=== PATIENT | female | born 2000 ===

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

== ENCOUNTER 2022-01-02 14:32 | Emergency (ER) | payer MEDICAID, SELFPAY ==
[2022-01-02 14:50] VITALS: BP 132/70; PULSE 62; RESP 16; TEMP 36.8; O2SAT 99; BMI 18.6
--- NOTE | 2022-01-02 14:56 | ED.FEMALEGU ---
HPI - Female Genitourinary General Chief complaint: Urogenital-Female Stated complaint: infection/personal Time Seen by Provider: 01/02/22 14:52 Source: patient Mode of arrival: ambulatory Limitations: no limitations History of Present Illness HPI Narrative: 21 y/o female presents to the ER for evaluation of urinary odor and vaginal discharge in the setting of recent unprotected sex 4 days ago. She states yesterday morning she woke up with green vaginal discharge and odor. She denies any pelvic pain, abdominal pain, nausea, vomiting or fevers. She denies any vaginal lesions or itching. She has never had a sexually transmitted infection before. She spoke with her partner who currently has no symptoms. Her last menstrual cycle was at the end of November. MD elicited complaint: possible STD Onset (ago): day(s) (1) Location of symptoms: vaginal Severity: moderate Female Urogenital Radiation: Non-Radiating Vaginal discharge: purulent Vaginal bleeding: none Urinary symptoms: Foul Smelling Urine Exacerbating factors: none Relieving factors: none Associated symptoms: denies other symptoms Treatment prior to arrival: none Sexual activity: Yes Patient : No Related Data : 1 Para: 0 Previous Rx's Medication Instructions Recorded cefuroxime axetil 250 mg tablet 250 mg PO BID #6 tabs 01/02/22 doxycycline hyclate 100 mg tablet 100 mg PO BID #14 tabs 01/02/22 Allergies Allergy/AdvReac Type Severity Reaction Status Date / Time No Known Allergies Allergy Unverified 04/04/20 18:22 [No Known Allergies*] Review of Systems Review of Systems: Constitutional: No Fever, No Chills ENT/Mouth: No sore throat Cardiovascular: No Chest Pain, No SOB Gastrointestinal: No Nausea, No Vomiting, No Diarrhea, No abdominal Pain, No Hematochezia, No Melena Genitourinary: No Dysuria, No Urinary Frequency, No Hematuria, +vaginal discharge, No pelvic pain, No gential lesions Musculoskeletal: No joint pain, No Myalgias Skin: No Skin Lesions, No rash Neuro: No Dizziness, No Headache Psych: + Anxiety/Panic Heme/Lymph: No Lymphadenopathy PMFSH Past Medical History : 1 Para: 0 Social History Social History Advance Directives: No Advance Directives Information Provided: No Patient : No Physical Exam Vital Signs: Vital Signs: Last Vital Signs Temp 98.2 F 01/02/22 14:50 Pulse 62 01/02/22 14:50 Resp 16 01/02/22 14:50 BP 132/70 01/02/22 14:50 Pulse Ox 99 01/02/22 14:50 O2 Del Method 01/02/22 14:50 BMI result Body Mass Index 18.6 Appearance: Alert. Oriented X3. No acute distress. HEENT: normal inspection CVS: Normal heart rate and rhythm. Pulses normal. Respiratory: No respiratory distress. Skin: Skin warm and dry. Normal skin color. Normal skin turgor. No rashes. Abdomen: Flat, soft, nontender throughout, normal bowel sounds. Pelvic: Normal-appearing external genitalia, no lesions or tenderness. Internal examination reveals moderate amount of white/greenish vaginal discharge, cervix is erythematous, closed. Bimanual examination reveals no adnexal tenderness. Extremities: Normal inspection x4 Neuro: Oriented X 3. Grossly normal, nonfocal Course Course Course Narrative: 21-year-old female presents to the ER for evaluation of green vaginal discharge started yesterday in the setting of unprotected sex. Clinical presentation and examination are consistent with STI, ? Trichomonas. Will also treat empirically for gonorrhea and chlamydia. Intramuscular Rocephin given here and will prescribe 1 week course of doxycycline. Patient was counseled on restrictions with both of these antibiotics. We will call her with the results. She will follow-up with [facility] as needed. Stable for discharge home. Reevaluation(s) Reevaluation #1: Trichomonas and yeast negative. Flagyl cancelled. UA + for infection. Will treat with 3 days of Ceftin and complete 1 week of doxy. Stable for d/c. MDM - Female Genitourinary Lab Data Labs: Lab Results 01/02/22 01/02/22 Range/Units 15:19 15:19 Urine Color YELLOW Urine Appearance HAZY Urine pH 6.5 (5.0-8.0) Ur Specific [place] 1.025 (1.005-1.025) Urine Protein TRACE (NEG-TRACE) MG/DL Urine Glucose (UA) NEG (NEG) MG/DL Urine Ketones 5 (NEG) MG/DL Urine Blood NEG (NEG) Urine Nitrite NEG (NEG) Ur Leukocyte Esterase 3+ H (NEG) Urine Test NEGATIVE (NEGATIVE) Critical Care Time Critical Care Time Critical Care Time: No Discharge Plan Discharge Clinical Impression: Cervicitis, UTI (urinary tract infection) Patient Disposition: Home, Self-Care Instructions: Cervicitis (ED), Urinary Tract Infection in Women (ED) Additional Instructions: Your urine test was negative for . It showed possible, urinary tract infection. You are being treated for possible sexually transmitted infections. Your test for Trichomoas and yeast came back negative today. Take the antibiotics as prescribed, complete the entire course. No sexual activity until you are off of antibiotics and all other symptoms are resolved. We will call you if any of the swabs today are positive. Recommend following up with the [facility] for further sexually transmitted infection testing such as HIV and syphilis, as needed. If you develop new or worsening symptoms call 911 or come back to the ER for further evaluation. Prescriptions: New doxycycline hyclate 100 mg tablet 100 mg PO BID Qty: 14 0RF cefuroxime axetil 250 mg tablet 250 mg PO BID Qty: 6 0RF
[2022-01-02] MEDS: cefTRIAXone sodium 500 MG, Lidocaine HCl 1 % MPF 1 ML IM (15:27)
[2022-01-02 15:33] LABS: Appearance Urine HAZY; Color Urine YELLOW; Glucose Urine UA NEG (NEG); Leukocyte Esterase Urine 3+ (NEG); Nitrite Urine NEG (NEG); PH 6.5 (5.0-8.0); Specific Gravity - Urine 1.025 (1.005-1.025); UACC Culture Trigger YES; UPreg QC Valid YES; Urine Blood NEG (NEG); Urine Ketones 5 MG/DL (NEG); Urine Pregnancy NEGATIVE (NEGATIVE); Urine Protein TRACE MG/DL (NEG-TRACE)
[2022-01-02 15:54] LABS: WBC Urine TNTC /HPF (0-4)
[2022-01-02 15:55] LABS: Bacteria Urine 2+ /LPF; RBC Urine 0-2 /HPF (0); Squamous Epithelial Cell Urine 3+ /LPF
[2022-01-03 10:22] LABS: CT PCR NOT DETECTED (Not Detect.); NG PCR NOT DETECTED (Not Detect.)
[2022-01-03 10:28] LABS: BV Int Neg Control Negative (Negative); BV Int Pos Control Positive (Positive)
== END 2022-01-02 16:00 | disposition home or self-care (01) ==
PROVIDERS: Physician Assistant; Emergency Provider Student in an Organized Health Care Education/Training Program
DX: N39.0 Urinary tract infection, site not specified (principal); N72 Inflammatory disease of cervix uteri; B96.89 Other specified bacterial agents as the cause of diseases classified elsewhere
CPT/HCPCS: 81001; 81025; 87086; 87480; 87491; 87510; 87591; 87660; 96372; 99283; 99284; J0696

== ENCOUNTER 2022-03-16 09:58 | Emergency (ER) | payer MEDICAID, SELFPAY ==
[2022-03-16 10:13] VITALS: BP 129/78; PULSE 90; RESP 20; TEMP 36.6; O2SAT 100; BMI 21.4
[2022-03-16 10:31] LABS: Appearance Urine Clear; Color Urine Yellow; Glucose Urine UA Negative (Negative); Leukocyte Esterase Urine Trace (Negative); Nitrite Urine Negative (Negative); PH 6.5 (5.0-8.0); Urine Blood Negative (Negative); Urine Ketones Negative (Negative); Urine Protein Negative (Neg-Trace)
[2022-03-16 10:32] LABS: UPreg QC Valid YES; Urine Pregnancy NEGATIVE (NEGATIVE)
[2022-03-16 10:37] LABS: Bacteria Urine None Seen (None Seen); Hyaline Casts Urine 0-2 /LPF (0-2); RBC Urine 0-2 /HPF (0-2); Squamous Epithelial Cell Urine 0-2 /HPF (0-2); WBC Urine 0-5 /HPF (0-5)
--- NOTE | 2022-03-16 12:38 | ED.GENADULT ---
HPI - General Adult General Chief complaint: General Medical Stated complaint: PT will not disclose why she is here Time Seen by Provider: 03/16/22 10:30 Source: patient Mode of arrival: ambulatory Limitations: no limitations History of Present Illness HPI narrative: Patient is a 22 year old female presenting to the emergency department today with concern of STI. Patient states that she feels as though her vaginal secretions have changed and she is concerned about an STI. Patient denies any dizziness, lightheadedness, abdominal pain, nausea, vomiting, fever, chills, blurry vision, double vision, loss of vision, chest pain, difficulty breathing, shortness of breath, back pain, night sweats, pain with urination, increased urinary frequency, increased urinary urgency, blood in her urine or stool, syncope or a near syncopal episode, recent trauma or falls, vaginal bleeding, vaginal discharge, bowel incontinence, bladder incontinence, bowel retention, bladder retention, or any other complaints at this time. Onset (ago): day(s) (1) Severity: mild Severity scale (1-10): 2 Relieving factors: none Exacerbating factors: none Associated symptoms: denies other symptoms Treatments prior to arrival: none Related Data Previous Rx's Medication Instructions Recorded doxycycline hyclate 100 mg tablet 100 mg PO BID 7 days #14 tabs 03/16/22 Allergies Allergy/AdvReac Type Severity Reaction Status Date / Time No Known Allergies Allergy Unverified 03/16/22 10:12 [No Known Allergies*] Review of Systems Constitutional: Constitutional: Reports no additional constitutional complaints, Denies chills, Denies fever(s) and Denies night sweats Eyes: Eyes: Reports no additional eye complaints, Denies blurry vision, Denies change in vision, Denies diplopia, Denies eye discharge, Denies loss of vision and Denies eye pain ENT: Denies dizziness Cardiovascular: Cardiovascular: Reports no additional cardiovascular complaints, Denies chest pain, Denies lightheadedness, Denies Loss of Consciousness and Denies dyspnea Respiratory: Respiratory: Reports no additional respiratory complaints and Denies dyspnea Gastrointestinal: Gastrointestinal: Reports no additional gastrointestinal complaints, Denies abdominal pain, Denies melena, Denies hematochezia, Denies change in bowel habits and Denies change in stool character Genitourinary: Genitourinary: Denies hematuria, Denies urinary frequency, Denies dysuria, Denies urinary incontinence, Denies urinary hesitancy, Denies urinary urgency and Reports vaginal discharge Musculoskeletal: Musculoskeletal: Reports no additional musculoskeletal complaints, Denies numbness and Denies tingling Neurologic: Denies dizziness, Denies loss of vision, Denies numbness and Denies tingling Psychiatric: Psychiatric: Reports no additional psychiatric complaints Endocrine: Endocrine: Reports no additional endocrine complaints Hematologic/Lymphatic: Hematologic/Lymphatic: Reports no additional hematologic/lymphatic complaints Allergic/Immunologic: Allergic/Immunologic: Reports no additional allergic/immunologic complaints FOR[facility], [facility] Past Medical History Attestation statement: The following information was validated with the patient. Source: old records reviewed Social History Social History Advance Directives: No Advance Directives Information Provided: Yes Physical Exam ED Vital Signs: Vital Signs - 24 hr 03/16/22 10:13 Temperature 97.9 F Pulse Rate 90 Respiratory Rate 20 Blood Pressure 129/78 Pulse Oximetry 100 Oxygen Delivery Method Room Air BMI result Body Mass Index 21.4 Const General: cooperative, no acute distress, alert and awake Nutritional Appearance: well nourished Orientation/consciousness: patient oriented x3 Limitations: no limitations HENMT Head: Yes normal to inspection and Yes atraumatic Ears: hearing grossly normal bilaterally and external ears normal General nose exam: Normal external nose present, no nasal discharge noted and no epistaxis Face and sinus: Yes normal facial exam, No abrasion and No laceration Mouth: Normal oral and palatal mucosa present, no drooling and no muffled voice Eyes General: appearance normal, both eyes and all related structures Periorbital: periorbital findings normal Eyelids: Yes eyelids normal Conjunctivae: conjunctivae normal Pupils: Equal, round and reactive pupils present EOM: EOMs intact bilaterally Neck Neck: Yes normal visual inspection, Yes full ROM and Yes no lymphadenopathy Chest Chest palpation & inspection: normal inspection of the chest Resp Effort & Inspection: normal respiratory effort and able to speak in complete sentences Auscultation: clear to auscultation bilaterally Cardio Rate: regular rate Rhythm: regular rhythm GI Inspection: Yes normal to inspection Neuro General: patient oriented x3 and moves all extremities Cranial nerves: Yes Equal, round and reactive pupils present Cognition (Neuro): normal cognition Motor exam (neuro): 5/5 motor strength present throughout Sensory Exam: Normal double simultaneous stimulation for sensation Coordination: [id number] test normal Extrem General: Yes normal to inspection, Yes full ROM and Yes capillary refill normal Psych Appearance: grossly normal Mental Status: mental status grossly normal Affect: normal affect Attitude: cooperative Thought process: Normal thought process present Thought content: Normal thought content present Insight: Good insight present (Psych) Medical Decision Making MDM Narrative Medical decision making narrative: Patient is a 22 year old female presenting to the emergency department today with STI concerns. Patient's physical exam was unremarkable. Patient's urine showed no acute process however, her GC is pending. I explained my physical exam findings as well as all test results to the patient. I answered all questions asked by the patient. Patient was given IM Ceftriaxone. I stressed the importance of the patient taking her medication as prescribed. I stressed the importance of the patient following up with her primary care provider. I stressed the importance of the patient returning to the emergency department immediately if her symptoms were to worsen or if she were to develop any dizziness, shortness of breath, difficulty breathing, chest pain, blurry vision, loss of vision, nausea, vomiting, abdominal pain, fever, chills, back pain, or any other complaints. Patient verbalized agreement and understanding with this treatment plan and discharge. Differential Diagnosis Differential Diagnosis: STI Medical Records Medical records reviewed: Yes I reviewed the patient's medical records. Lab Data Lab results reviewed: Yes I reviewed the patient's lab results. Labs: Lab Results 03/16/22 03/16/22 03/16/22 Range/Units 10:23 10:23 10:57 Urine Color Yellow Urine Appearance Clear Urine pH 6.5 (5.0-8.0) Ur Specific Orange 1.010 (1.005-1.025) Urine Protein Negative (Neg-Trace) mg/dL Urine Glucose (UA) Negative (Negative) mg/dL Urine Ketones Negative (Negative) mg/dL Urine Blood Negative (Negative) Urine Nitrite Negative (Negative) Ur Leukocyte Esterase Trace H (Negative) Urine RBC 0-2 (0-2) /HPF Urine WBC 0-5 (0-5) /HPF Ur Squamous Epith Cells 0-2 (0-2) /HPF Urine Bacteria None Seen (None Seen) Hyaline Casts 0-2 (0-2) /LPF Urine Test NEGATIVE (NEGATIVE) Chlam trachomat DNA PCR DETECTED A (Not Detect.) N.gonorrhoeae DNA (PCR) NOT DETECTED (Not Detect.) Discharge Plan Discharge Clinical Impression: STI (sexually transmitted infection) Patient Disposition: Home, Self-Care Instructions: Safe Sex Practices (ED) Additional Instructions: Follow up with your primary care provider. Return to the emergency department immediately if your symptoms worsen or if you develop any dizziness, shortness of breath, difficulty breathing, chest pain, blurry vision, loss of vision, nausea, vomiting, abdominal pain, fever, chills, back pain, or any other complaints. Prescriptions: New doxycycline hyclate 100 mg tablet 100 mg PO BID 7 Days Qty: 14 0RF Referrals: [facility] [Provider Group] (Call to establish and follow up with a primary care provider. If you already have a primary care provider, please call and follow up with them. ) [facility] [Provider Group] (Call to establish and follow up with a primary care provider. If you already have a primary care provider, please call and follow up with them. ) [facility] [Provider Group] (Call to establish and follow up with a primary care provider. If you already have a primary care provider, please call and follow up with them. ) Print Language: Afghan
[2022-03-16] MEDS: cefTRIAXone sodium 500 MG VIAL IM (12:55)
[2022-03-16 13:29] LABS: CT PCR DETECTED (Not Detect.)
[2022-03-16 13:30] LABS: NG PCR NOT DETECTED (Not Detect.)
== END 2022-03-16 16:19 | disposition home or self-care (01) ==
PROVIDERS: Emergency Provider Emergency Medicine
DX: Z20.2 Contact with and (suspected) exposure to infections with a predominantly sexual mode of transmission (principal)
CPT/HCPCS: 81001; 81025; 87491; 87591; 96372; 99282; 99284; J0696

== ENCOUNTER 2022-04-20 14:03 | Emergency (ER) | payer MEDICAID, SELFPAY ==
[2022-04-20 14:07] VITALS: BP 131/78; PULSE 71; RESP 18; TEMP 37.1; O2SAT 100; BMI 18.9
[2022-04-20 16:49] LABS: Basophils Percent Auto 0.1 % (0-2); Hematocrit 41.2 % (37.0-47.0); Hemoglobin 12.9 g/dl (12.0-16.0); Imm Gran Abs Auto 0.04 X10*3/uL (0.00-0.03); Imm Gran Pct Auto 0.4 % (0.0-0.4); Lymphocytes Absolute Auto 0.7 X10*3/uL (1.2-4.9); Lymphocytes Percent Auto 6.4 % (20-40); MANUAL DIFF FLAG SCAN; Mean Corpuscular HGB Conc 31.3 g/dl (31.0-35.0); Mean Corpuscular Hemoglobin 25.6 pg (27.0-33.0); Mean Corpuscular Volume 81.9 fL (80.0-98.0); Mean Platelet Volume 10.5 fL (9.4-12.3); Monocytes Absolute Auto 0.3 X10*3/uL (0.1-1.2); Monocytes Percent Auto 2.7 % (2-11); Neutrophils Absolute Auto 9.8 x10*3/uL (2.0-8.3); Neutrophils Percent Auto 90.4 % (45-73); Platelet Count 291 X10*3/uL (160-400); Red Blood Count 5.03 X10*6/uL (4.20-5.50); Red Cell Distribution Width 16.8 % (11.0-16.0); SCAN SMEAR FLAG 1; White Blood Count 10.8 X10*3/uL (4.8-10.8)
[2022-04-20 17:09] LABS: SLIDE REVIEW VERIFIED
[2022-04-20 17:16] LABS: Alanine Aminotransferase 13 U/L (0-31); Albumin Level 4.8 g/dL (3.5-5.0); Alkaline Phosphatase 73 U/L (39-117); Anion Gap 15 (12-20); Aspartate Amino Transferase 25 U/L (5-31); Bilirubin Direct 0.2 mg/dL (0.0-0.5); Bilirubin Total 0.3 mg/dL (0.0-1.0); Blood Urea Nitrogen 6 mg/dL (9-16); Calcium 9.5 mg/dL (8.4-10.2); Carbon Dioxide 22 mmol/L (22-29); Chloride 104 mmol/L (96-108); Creatinine Clr Calc Pharmacy 108.2; Estimated Glomerular Filt Rate > 60; Glucose Random 125 mg/dL (60-115); Lipase 13 U/L (8-78); Potassium 4.2 mmol/L (3.3-5.1); Sodium 137 mmol/L (135-145); Total Protein 8.1 g/dL (6.5-8.0)
== END 2022-04-20 22:36 | disposition left against medical advice (07) ==
PROVIDERS: Emergency Provider Emergency Medicine
DX: O21.9 Vomiting of pregnancy, unspecified (principal); Z3A.01 Less than 8 weeks gestation of pregnancy
CPT/HCPCS: 36415; 80048; 80076; 83690; 85025; 99281; 99283

== ENCOUNTER 2022-04-22 13:51 | Emergency (ER) | payer MEDICAID, SELFPAY ==
--- NOTE | ~2022-04-22 | US_ITS ---
EXAMINATION: US OBSTETRICAL ULTRASOUND CLINICAL INFORMATION: Abdominal pain. Vomiting. COMPARISON: None. Beta-hCG quantitative: 94301 LMP: Unknown. TECHNIQUE: Ultrasound of the maternal pelvis is performed using transabdominal transducer. M-mode Doppler is also performed. FINDINGS: There is a single intrauterine gestational sac with visible yolk sac, pole, and cardiac activity. There is no significant subchorionic hemorrhage or hematoma. The yolk sac has an inner diameter of 2 mm, normal HR: 110 beats per minute. CRL (crown rump length): 0.38 cm (6 weeks 1 day +/- 4 days). FAM (estimated date of delivery): 12/15/2022 +/- 4 days. MATERNAL ADNEXA: The right maternal ovary measures 2.5 x 1.8 x 2.1 cm. A 1.4 cm rounded cystic focus at the right ovary likely corresponds to a corpus luteum. The left maternal ovary measures 2.1 x 1 x 1.6 cm. There is no significant maternal adnexal mass. No maternal pelvic ascites. US/US OB <= 14 weeks fetus IMPRESSION: 1. Single intrauterine gestation with ultrasound gestational age of 6 weeks 1 day +/- 4 days. 2. Estimated date of delivery is 12/15/2022 +/- 4 days. 3. No maternal adnexal mass or pelvic ascites.
--- NOTE | ~2022-04-22 | US_ITS ---
EXAMINATION: US ABDOMEN LIMITED CLINICAL INFORMATION: Upper abdominal and epigastric pain. Question gallstone. COMPARISON: None TECHNIQUE: Limited right upper quadrant ultrasound for evaluation of the gallbladder was performed utilizing a curved array transducer. FINDINGS: Gallbladder is physiologically distended. No echogenic shadowing gallstones, sludge, or polyps. No pericholecystic fluid. Gallbladder wall is at the upper limits of normal measuring 3 mm in thickness. The patient was tender in the area of the gallbladder during scanning per technologist report. No biliary ductal dilation. The visualized common hepatic duct measures 0.3 cm in diameter. US/US abdomen limited IMPRESSION: 1. No evidence of cholelithiasis. No biliary ductal dilation. 2. Borderline gallbladder wall thickening. No specific sonographic findings of acute cholecystitis.
[2022-04-22 15:17] VITALS: BP 108/73; PULSE 103; RESP 16; TEMP 37.3; O2SAT 97; BMI 18.9
[2022-04-22 17:09] LABS: Hematocrit 39.3 % (37.0-47.0); Hemoglobin 12.7 g/dl (12.0-16.0); Mean Corpuscular HGB Conc 32.3 g/dl (31.0-35.0); Mean Corpuscular Hemoglobin 25.8 pg (27.0-33.0); Mean Corpuscular Volume 79.7 fL (80.0-98.0); Platelet Count 305 X10*3/uL (160-400); Red Blood Count 4.93 X10*6/uL (4.20-5.50); Red Cell Distribution Width 16.6 % (11.0-16.0); White Blood Count 10.9 X10*3/uL (4.8-10.8)
[2022-04-22 17:23] LABS: Anion Gap 16 (12-20); Blood Urea Nitrogen 10 mg/dL (9-16); Calcium 9.3 mg/dL (8.4-10.2); Carbon Dioxide 22 mmol/L (22-29); Chloride 104 mmol/L (96-108); Creatinine Clr Calc Pharmacy 113.6; Estimated Glomerular Filt Rate > 60; Glucose Random 78 mg/dL (60-115); Potassium 3.7 mmol/L (3.3-5.1); Sodium 138 mmol/L (135-145)
[2022-04-22 17:28] LABS: COVID-19 Test Negative (Negative); IDNOW Serial# 16C4AD1C
[2022-04-22 19:59] VITALS: BP 134/74; PULSE 89; RESP 12; TEMP 36.9; O2SAT 99
[2022-04-22 22:15] LABS: Alanine Aminotransferase 11 U/L (0-31); Albumin Level 4.5 g/dL (3.5-5.0); Alkaline Phosphatase 70 U/L (39-117); Aspartate Amino Transferase 25 U/L (5-31); Bilirubin Direct 0.2 mg/dL (0.0-0.5); Bilirubin Total 0.4 mg/dL (0.0-1.0); Lipase 18 U/L (8-78); Total Protein 7.7 g/dL (6.5-8.0)
[2022-04-22] MEDS: Acetaminophen 325 MG TABLET 975 MG PO (22:15)
--- NOTE | 2022-04-23 00:02 | PC.NURSE ---
Questioning whether patient eloped. found ultrasound pictures in room but patient is not in room x 30mins after ultrasound pictures.
--- NOTE | 2022-04-23 00:06 | ED_ITS ---
HPI - Abdominal Pain General Chief Complaint: Abdominal Pain Stated Complaint: abd pain quest of Time Seen by Provider: 04/22/22 21:06 Source: patient Mode of arrival: ambulatory Limitations: no limitations History of Present Illness HPI narrative: Patient presents emergency department for evaluation of upper abdominal pain located to the epigastric and right upper quadrant region in vomiting. She stat es that this is been going on for 3 days. She took it at home test which was positive. She is uncertain of the date of her last menstrual. States she thinks it was about a month and a half ago. She reports that she came to the emergency department 2 days ago but ultimately left from the waiting room without being seen. She has not yet seen an OB regarding her . Denies fevers, chills, headache, dizziness, lightheadedness, chest pain, palpitations, shortness of breath, difficulty breathing, back pain, flank pain, abnormal vaginal discharge, dysuria, urinary frequency/urgency/hesitancy. Related Data Previous Rx's Medication Instructions Recorded doxycycline hyclate 100 mg tablet 100 mg PO BID 7 days #14 tabs 03/16/22 Allergies Allergy/AdvReac Type Severity Reaction Status Date / Time No Known Allergies Allergy Unverified 03/16/22 10:12 [No Known Allergies*] Review of Systems Review of Systems Constitutional : No Weight loss, No Fever, No Chills ENT/Mouth :? No sore throat, No Rhinorrhea Eyes: No Swelling, No Redness Cardiovascular : No Chest Pain, No SOB, No Edema Respiratory : No Cough, No Sputum, No Wheezing Gastrointestinal : Positive Nausea, Positive Vomiting, no Diarrhea, positive abdominal pain, No Hematochezia, No Melena Genitourinary : No Dysuria, No Urinary Frequency, No Hematuria, No Urgency? Musculoskeletal : No joint pain, No Myalgias, No Joint Swelling Skin : No Skin Lesions, No rash Neuro : No Weakness, No Numbness, No Dizziness, No Headache Psych : No Anxiety/Panic, No Depression Heme/Lymph: No Bruising, No Lymphadenopathy Endocrine : No Polyuria, No Polydipsia Yes all other systems are reviewed and are negative [facility] Past Medical History Attestation statement: The following information was validated with the patient. Source: old records reviewed Social History Social History Advance Directives: No Advance Directives Information Provided: No Physical Exam ED Vital Signs: Vital Signs - 24 hr 04/22/22 15:17 04/22/22 19:59 Temperature 99.1 F 98.4 F Pulse Rate 103 H 89 Respiratory Rate 16 12 Blood Pressure 108/73 134/74 Pulse Oximetry 97 99 Oxygen Delivery Method Room Air Room Air BMI result Body Mass Index 18.9 Appearance: Alert.?Oriented to person, place and time. No acute distress.?Normal affect. Eyes: Pupils equal, round and reactive to light.? ENT: Pharynx normal.?? Neck: Normal inspection.? Neck supple.?? CVS: Heart sounds normal. Normal heart rate and rhythm.? Pulses normal.?? Respiratory: No respiratory distress.? Lung sounds clear to auscultation bilaterally?? Abdomen: Soft with epigastric and right upper quadrant tenderness upon palpation, normoactive bowel sounds.?? Skin: Skin warm and dry.? Normal skin color.? ?? Extremities: No lower extremity edema.? Neuro: Moves all extremities spontaneously. Sensation intact bilaterally. No focal neuro deficits. Ambulates with normal steady gait. Course Course Course Narrative: Patient is a 22-year-old female with no significant past medical history, presenting to emergency department for evaluation of abdominal pain with vomiting and recent positive test. Gestation unknown, last menstrual period is uncertain reporting she believes it may have been 1.5 months ago. She appears significantly uncomfortable, unable to sit still during examination. Physical exam consists surrounding for significant tenderness over the epigastrium and right upper quadrant. Will obtain CBC, CMP, lipase, hCG, urinalysis, ultrasound to evaluate for cholelithiasis, CBD. Patient also reporting mid lower abdominal pain, obtain pelvic ultrasound to exclude ectopic . Will trial IV fluids, and Zofran IV. Reevaluation(s) Reevaluation #1: CBC reveals mild leukocytosis at 10.9. CMP is normal, lipase is normal. HCG 73,29 which may be consistent with early , early as 6-7 weeks or possibly further along. Abdominal ultrasound reveals no evidence of cholelithiasis no biliary duct dilation, however there is borderline gallbladder wall thickening without evidence of cholecystitis. Pelvic ultrasound reveals a single intrauterine gestation of approximately 6 weeks 1 day with estimated due date 12/15/2022. Presented to patient's room to discuss findings however she was not present 2355: Advised by nursing staff that patient had eloped. Patient did not have an IV in place at the time of elopement. Nursing staff Presented to room and patient was gone, no personal belongings left behind. Checked bathrooms and waiting room patient was not present. Time: 23:55 MDM - Abdominal Pain Medical Records Attestation: I reviewed the patient's medical records. Lab Data Attestation: I reviewed the patient's lab results. Result diagrams: 04/22/22 16:57 04/22/22 16:57 Labs: Lab Results 04/22/22 04/22/22 04/22/22 Range/Units 16:57 16:57 16:57 WBC 10.9 H (4.8-10.8) X10*3/uL RBC 4.93 (4.20-5.50) X10*6/uL Hgb 12.7 (12.0-16.0) g/dl Hct 39.3 (37.0-47.0) % MCV 79.7 L (80.0-98.0) fL MCH 25.8 L (27.0-33.0) pg MCHC 32.3 (31.0-35.0) g/dl RDW 16.6 H (11.0-16.0) % Plt Count 305 (160-400) X10*3/uL MPV 10.0 (9.4-12.3) fL Absolute Nucleated RBC 0.000 (0.0-0.012) X10*3/uL Nucleated RBC % (auto) 0.0 (0.0-0.2) /100WBC Sodium 138 (135-145) mmol/L Potassium 3.7 (3.3-5.1) mmol/L Chloride 104 (96-108) mmol/L Carbon Dioxide 22 (22-29) mmol/L Anion Gap 16 (12-20) BUN 10 D (9-16) mg/dL Creatinine 0.60 (0.5-1.4) mg/dL Estim Creat Clear Calc 113.6 Estimated GFR > 60 Random Glucose 78 (60-115) mg/dL Calcium 9.3 (8.4-10.2) mg/dL Total Bilirubin 0.4 (0.0-1.0) mg/dL Direct Bilirubin 0.2 (0.0-0.5) mg/dL AST 25 (5-31) U/L ALT 11 (0-31) U/L Alkaline Phosphatase 70 (39-117) U/L Total Protein 7.7 (6.5-8.0) g/dL Albumin 4.5 (3.5-5.0) g/dL Lipase 18 (8-78) U/L Beta HCG, Quant 19096 mIU/mL COVID-19 (CARLOS) Negative (Negative) COVID-19 Clin Com See Note Imaging Data US - abdomen: Radiologist's impression: US/US abdomen limited IMPRESSION: ? 1. No evidence of cholelithiasis. No biliary ductal dilation. 2. Borderline gallbladder wall thickening. No specific sonographic findings of acute cholecystitis. pelvic US: Radiologist's impression: US/US OB <= 14 weeks fetus IMPRESSION: 1. Single intrauterine gestation with ultrasound gestational age of? 6 weeks 1 day +/- 4 days. 2. Estimated date of delivery is 12/15/2022 +/- 4 days. 3. No maternal adnexal mass or pelvic ascites. Discharge Plan Discharge Clinical Impression: Vomiting, Patient Disposition: Elopement Prescriptions: No Action doxycycline hyclate 100 mg tablet 100 mg PO BID 7 Days Qty: 14 0RF Interventions: ED Discharge Assessment Last Done: 04/23/22 00:19 Discharge Date/Time: 04/23/22 00:20
== END 2022-04-23 00:20 | disposition left against medical advice (07) ==
PROVIDERS: Nurse Practitioner Family; Physician Assistant; Emergency Provider Emergency Medicine
DX: O21.0 Mild hyperemesis gravidarum (principal); Z3A.01 Less than 8 weeks gestation of pregnancy; Z20.822 Contact with and (suspected) exposure to COVID-19; Z79.899 Other long term (current) drug therapy
CPT/HCPCS: 76705; 76801; 80048; 80076; 83690; 84702; 85027; 87635; 99283; 99284

== ENCOUNTER → 2022-05-07 13:45 | Outpatient (BNVA) | payer MEDICAID, SELFPAY | PROVIDERS: Visit Provider Advanced Practice Midwife | DX: Z34.80 Encounter for supervision of other normal pregnancy, unspecified trimester (principal); Z3A.00 Weeks of gestation of pregnancy not specified | CPT/HCPCS: 99202 ==

== ENCOUNTER 2023-03-06 15:28 | Emergency (ER) | payer MEDICAID, SELFPAY ==
--- NOTE | ~2023-03-06 | US_ITS ---
EXAMINATION: US PELVIS CLINICAL INFORMATION: A 23-year-old female with vaginal bleeding for 3 months status post delivery. COMPARISON: Obstetrical ultrasound done on 04/22/2022. TECHNIQUE: Ultrasound of the pelvis is performed using both transabdominal and transvaginal transducers along with Doppler. Transvaginal imaging is performed due to inadequate visualization transabdominally. FINDINGS: Uterus: The uterus is anteverted and measures 8.7 x 5.6 x 7.1 cm. The double wall endometrial thickness is 2 mm. No evidence of any retained product of conception. Trace amount of fluid is present within the endometrial cavity. The uterus is smooth in contour and has slightly heterogeneous myometrium echogenicity. No visible fibroid. Adnexa: Both ovaries are visualized. There is no pelvic ascites or fluid collection. Right ovary measures 2.3 x 1.6 x 1.6 cm. 3.1 mL. Previously measured 3.6 x 2.2 x 2.2 cm. Left ovary measures 2.1 x 1.8 x 1.3 cm. 2.6 mL. Previously measured 1.8 x 1.7 x 1.6 cm. US/US pelvic and transvaginal IMPRESSION: No sonographic evidence of retained product of conception. Sonographically unremarkable bilateral ovaries. The etiology for vaginal bleeding is not evident on these images.
[2023-03-06 15:29] VITALS: BP 139/93; PULSE 68; RESP 15; TEMP 37.2; O2SAT 100; BMI 17.8
--- NOTE | 2023-03-06 15:30 | ED.ABDPAIN ---
HPI - Abdominal Pain General Chief Complaint: Urogenital-Female Stated Complaint: abd pain Time Seen by Provider: 03/06/23 15:58 Source: patient Mode of arrival: ambulatory Limitations: no limitations History of Present Illness HPI narrative: Patient is a 23-year-old , recently delivered on 12/16/2022 presenting with continuous vaginal bleeding. States she had her normal menstrual period approximately one month , then had one month without bleeding, then has had continuous spotting since. 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 Denies any abdominal pain, dysuria hematuria. Denies any nausea, vomiting, diarrhea or constipation. Denies any abnormal vaginal discharge. Does report that she tested positive for chlamydia early in her and was treated with antibiotics. Is agreeable to STI testing today. Denies fevers. Denies any chest pain or shortness of breath. MD elicited complaint: other (Vaginal bleeding) Pertinent past history: other (Recently gave on 12/16/2022) Onset (ago): month(s) Location: none Associated symptoms: denies other symptoms Related Data Previous Rx's Medication Instructions Recorded doxylamine succinate 25 mg tablet 25 mg PO BEDTIME PRN sleep #30 tabs 05/07/22 (Unisom (doxylamine)) vitamin with calcium 1 tab PO DAILY #90 tabs 05/07/22 no.72-iron 27 mg-folic acid 1 mg tablet ( Vitamins Plus Low Iron) pyridoxine (vitamin B6) 25 mg 25 mg PO TID #90 tabs 05/07/22 tablet Allergies Allergy/AdvReac Type Severity Reaction Status Date / Time No Known Allergies Allergy Verified 05/07/22 13:50 [No Known Allergies*] Review of Systems Review of Systems As per HPI. Yes all other systems are reviewed and are negative Constitutional: Reports as per HPI [facility] Social History Social History (Updated 05/07/22 @ 13:51 by TRACY Gregory) Substance Use Type: Marijuana Advance Directives: No Advance Directives Information Provided: No Physical Exam ED Vital Signs: Vital Signs - 24 hr 03/06/23 15:29 Temperature 99 F Pulse Rate 68 Respiratory Rate 15 Blood Pressure 139/93 H Pulse Oximetry 100 Oxygen Delivery Method Room Air BMI result Body Mass Index 17.8 Vital signs have been reviewed and appear to be correct. Blood pressure elevated. Heart rate normal. Respiratory rate normal. Temperature normal. Oxygen saturation normal. Const General: cooperative, healthy appearing and no acute distress Orientation/consciousness: oriented to person, oriented to place, oriented to time and patient oriented x3 Limitations: no limitations HENMT Head: Yes normocephalic and Yes atraumatic Ears: external ears normal General nose exam: Normal external nose present Face and sinus: Yes face symmetric Mouth: oropharynx normal and moist mucous membranes Throat: Yes uvula midline Eyes Pupils: Equal, round and reactive pupils present Neck Neck: Yes normal visual inspection and Yes supple Resp Effort & Inspection: normal respiratory effort and able to speak in complete sentences Auscultation: clear to auscultation bilaterally Cardio Rate: regular rate Rhythm: regular rhythm Heart sounds: S1 normal heart sound present and S2 normal heart sound present GI Palpation (GI): Soft to palpation and nontender Auscultation: normoactive bowel sounds Other: Pelvic exam chaperoned by ALIZA Mulligan General: Yes no CVA tenderness External Female Exam: normal external appearance Speculum Exam - Vagina: normal appearance of the vagina, normal palpation, abnormal vaginal discharge clear and bloody, not erythematous, no lesions, vaginal bleeding, No tissue present in vagina, no masses and nontender Speculum Exam - Cervix: normal appearance of the cervix and Cervical os closed Bimanual exam- vagina & uterus: normal palpation OB/external & speculum: vaginal bleeding; no tissue noted in vagina Back/Spine/Pelvis Back: no CVA tenderness Skin General skin exam: elasticity normal and turgor normal Neuro General: oriented to person, oriented to place, oriented to time, patient oriented x3, moves all extremities, no focal motor deficits and CN's II-XI intact bilaterally Cranial nerves: Yes Equal, round and reactive pupils present Cognition (Neuro): normal cognition Extrem General: Yes full ROM, Yes no pedal edema and Yes no calf tenderness Psych Mental Status: mental status grossly normal Affect: normal affect Thought process: Normal thought process present Course Course Course Narrative: This is a rapid medical exam. Deferred additional HPI, ROS, PE to primary provider. 23 yo female with history of anemia here with vaginal bleeding x 3 months (described as spotting). Had vaginal delivery 3 months ago. 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 Del[place] at [facility] [place]. No fevers, chills, urinary symptoms, abdominal pain. Will obtain labs, UA, ur preg, pelvic US. VSS Medical Decision Making Medical Decision Making [facility] Narrative: Patient is a 23-year-old , recently delivered on 12/16/2022 presenting with continuous vaginal bleeding. On exam patient is awake, A+Ox3, VS WNL, afebrile, normal neurological exam without focal deficits, abdomen soft and nontender, no guarding or rebound tenderness, no CVA tenderness. Given reported symptoms and physical exam findings, initial differential includes spontaneous , ectopic , uterine fibroids, abnormal uterine bleeding, STI. Labs notable for normal H&H, no leukocytosis. No evidence of infection on UA. U/S notable for no evidence of retained products of conception, normal ovaries. My interpretation is in agreement with the radiologist's interpretation. Will perform pelvic exam and swab for gonorrhea, chlamydia, trichomonas and BV. Feel patient is stable for discharge home at this time with follow-up with her RAIL SIGNAL DESIGNER. Will refer to Dr. Aguilar if she is unable to see her RAIL SIGNAL DESIGNER. Will contact patient with any positive results from pelvic exam. Return precautions discussed at bedside. Patient verbalized understanding of and agreement with plan. Differential Diagnosis Differential Diagnoses: The differential diagnosis associated with the presentation includes As per MDM. Admission/Observation Consideration of admission/observation: Escalation of care including admission/observation considered Lab Data [facility] Lab Attestation statement: I reviewed the patient's lab results. As per MDM. 03/06/23 15:41 03/06/23 15:41 Labs: Lab Results 03/06/23 03/06/23 03/06/23 Range/Units 15:41 15:41 15:41 WBC 6.2 (4.8-10.8) X10*3/uL RBC 4.64 (4.20-5.50) X10*6/uL Hgb 12.3 (12.0-16.0) g/dl Hct 38.9 (37.0-47.0) % MCV 83.8 (80.0-98.0) fL MCH 26.5 L (27.0-33.0) pg MCHC 31.6 (31.0-35.0) g/dl RDW 18.3 H (11.0-16.0) % Plt Count 250 (160-400) X10*3/uL MPV 10.3 (9.4-12.3) fL Immature Gran % (Auto) 0.0 (0.0-0.4) % Neut % (Auto) 37.7 L (45-73) % Lymph % (Auto) 47.1 H (20-40) % Waller % (Auto) 8.1 (2-11) % Eos % (Auto) 6.8 H (0-4) % Baso % (Auto) 0.3 (0-2) % Lymph # (Auto) 2.9 (1.2-4.9) X10*3/uL Waller # (Auto) 0.5 (0.1-1.2) X10*3/uL Eos # (Auto) 0.4 (0.0-0.4) X10*3/uL Baso # (Auto) 0.0 (0.0-0.2) X10*3/uL Abs Immat Gran (auto) 0.00 (0.00-0.03) X10*3/uL Absolute Neuts (auto) 2.3 (2.0-8.3) x10*3/uL Absolute Nucleated RBC 0.000 (0.0-0.012) X10*3/uL Nucleated RBC % (auto) 0.0 (0.0-0.2) /100WBC PT 14.7 H (11.1-13.3) SEC INR 1.2 H (0.9-1.1) Sodium 141 (135-145) mmol/L Potassium 4.1 (3.3-5.1) mmol/L Chloride 112 H (96-108) mmol/L Carbon Dioxide 23 (22-29) mmol/L Anion Gap 10 L (12-20) BUN 8 L (9-16) mg/dL Creatinine 0.68 (0.5-1.4) mg/dL Estim Creat Clear Calc 93.2 Estimated GFR > 60 Random Glucose 97 (60-115) mg/dL Calcium 9.7 (8.4-10.2) mg/dL Total Bilirubin 0.2 (0.0-1.0) mg/dL Direct Bilirubin < 0.2 (0.0-0.5) mg/dL AST 22 (5-31) U/L ALT 11 (0-31) U/L Alkaline Phosphatase 74 (39-117) U/L Total Protein 7.2 (6.5-8.0) g/dL Albumin 4.2 (3.5-5.0) g/dL Urine Color Urine Appearance Urine pH (5.0-9.0) Ur Specific [place] (1.005-1.025) Urine Protein (Neg-Trace) mg/dL Urine Glucose (UA) (Negative) mg/dL Urine Ketones (Negative) mg/dL Urine Blood (Negative) Urine Nitrite (Negative) Ur Leukocyte Esterase (Negative) Urine RBC (0-2) /HPF Urine WBC (0-5) /HPF Ur Squamous Epith Cells (0-2) /HPF Urine Bacteria (None Seen) Hyaline Casts (0-2) /LPF Urine Test (NEGATIVE) 03/06/23 03/06/23 Range/Units 15:45 15:45 WBC (4.8-10.8) X10*3/uL RBC (4.20-5.50) X10*6/uL Hgb (12.0-16.0) g/dl Hct (37.0-47.0) % MCV (80.0-98.0) fL MCH (27.0-33.0) pg MCHC (31.0-35.0) g/dl RDW (11.0-16.0) % Plt Count (160-400) X10*3/uL MPV (9.4-12.3) fL Immature Gran % (Auto) (0.0-0.4) % Neut % (Auto) (45-73) % Lymph % (Auto) (20-40) % Waller % (Auto) (2-11) % Eos % (Auto) (0-4) % Baso % (Auto) (0-2) % Lymph # (Auto) (1.2-4.9) X10*3/uL Waller # (Auto) (0.1-1.2) X10*3/uL Eos # (Auto) (0.0-0.4) X10*3/uL Baso # (Auto) (0.0-0.2) X10*3/uL Abs Immat Gran (auto) (0.00-0.03) X10*3/uL Absolute Neuts (auto) (2.0-8.3) x10*3/uL Absolute Nucleated RBC (0.0-0.012) X10*3/uL Nucleated RBC % (auto) (0.0-0.2) /100WBC PT (11.1-13.3) SEC INR (0.9-1.1) Sodium (135-145) mmol/L Potassium (3.3-5.1) mmol/L Chloride (96-108) mmol/L Carbon Dioxide (22-29) mmol/L Anion Gap (12-20) BUN (9-16) mg/dL Creatinine (0.5-1.4) mg/dL Estim Creat Clear Calc Estimated GFR Random Glucose (60-115) mg/dL Calcium (8.4-10.2) mg/dL Total Bilirubin (0.0-1.0) mg/dL Direct Bilirubin (0.0-0.5) mg/dL AST (5-31) U/L ALT (0-31) U/L Alkaline Phosphatase (39-117) U/L Total Protein (6.5-8.0) g/dL Albumin (3.5-5.0) g/dL Urine Color Yellow Urine Appearance Clear Urine pH 5.5 (5.0-9.0) Ur Specific [place] 1.025 (1.005-1.025) Urine Protein Negative (Neg-Trace) mg/dL Urine Glucose (UA) Negative (Negative) mg/dL Urine Ketones Trace (Negative) mg/dL Urine Blood Small (1+) H (Negative) Urine Nitrite Negative (Negative) Ur Leukocyte Esterase Small (1+) H (Negative) Urine RBC 0-2 (0-2) /HPF Urine WBC 6-10 H (0-5) /HPF Ur Squamous Epith Cells 6-10 (0-2) /HPF Urine Bacteria None Seen (None Seen) Hyaline Casts 0-2 (0-2) /LPF Urine Test NEGATIVE (NEGATIVE) Independent Interpretation I performed an independent interpretation of an: Ultrasound Interpretation: No retained products of conception, normal ovaries Radiology Impression Discussion of test interpretation with radiology: I have reviewed the radiologist's reading. Radiologist Impression: US/US pelvic and transvaginal IMPRESSION: No sonographic evidence of retained product of conception. Sonographically unremarkable bilateral ovaries. The etiology for vaginal bleeding is not evident on these images. External Record Review External record reviewed: Inpatient record, Office record and Outpatient record Discharge Plan Discharge Clinical Impression: Vaginal bleeding Patient Disposition: Home, Self-Care Instructions: Dysfunctional Uterine Bleeding (ED), Bleeding (ED) Additional Instructions: You were evaluated in the emergency department today for vaginal bleeding. Your blood levels are normal today, you are not anemic. Your ultrasound did not show evidence of a miscarriage or ectopic . You were tested for sexually transmitted infections and will be contacted with any positive results. Please contact your OBGYN for follow-up appointment. If you are unable to see your OBGYN, you are also being referred to Dr. Aguilar, and can contact his office for an appointment. Please return to the emergency department for worsening vaginal bleeding, abdominal pain, fever 100.4? F or greater, back or flank pain, or any other concerning symptoms. Prescriptions: No Action Vitamin Plus Low Iron 27 mg iron- 1 mg tablet 1 tab PO DAILY Qty: 90 4RF Unisom (doxylamine) 25 mg tablet 25 mg PO BEDTIME PRN (Reason: sleep) Qty: 30 0RF pyridoxine (vitamin B6) 25 mg tablet 25 mg PO TID Qty: 90 1RF Referrals: Nitish Aguilar MD [Physician] -
[2023-03-06 15:47] LABS: MANUAL DIFF FLAG NO
[2023-03-06 15:48] LABS: Basophils Percent Auto 0.3 % (0-2); Eosinophils Absolute Auto 0.4 X10*3/uL (0.0-0.4); Eosinophils Percent Auto 6.8 % (0-4); Hematocrit 38.9 % (37.0-47.0); Hemoglobin 12.3 g/dl (12.0-16.0); Lymphocytes Absolute Auto 2.9 X10*3/uL (1.2-4.9); Lymphocytes Percent Auto 47.1 % (20-40); Mean Corpuscular HGB Conc 31.6 g/dl (31.0-35.0); Mean Corpuscular Hemoglobin 26.5 pg (27.0-33.0); Mean Corpuscular Volume 83.8 fL (80.0-98.0); Mean Platelet Volume 10.3 fL (9.4-12.3); Monocytes Absolute Auto 0.5 X10*3/uL (0.1-1.2); Monocytes Percent Auto 8.1 % (2-11); Neutrophils Absolute Auto 2.3 x10*3/uL (2.0-8.3); Neutrophils Percent Auto 37.7 % (45-73); Platelet Count 250 X10*3/uL (160-400); Red Blood Count 4.64 X10*6/uL (4.20-5.50); Red Cell Distribution Width 18.3 % (11.0-16.0); White Blood Count 6.2 X10*3/uL (4.8-10.8)
[2023-03-06 16:01] LABS: Alanine Aminotransferase 11 U/L (0-31); Albumin Level 4.2 g/dL (3.5-5.0); Alkaline Phosphatase 74 U/L (39-117); Anion Gap 10 (12-20); Aspartate Amino Transferase 22 U/L (5-31); Bilirubin Direct < 0.2 mg/dL (0.0-0.5); Bilirubin Total 0.2 mg/dL (0.0-1.0); Blood Urea Nitrogen 8 mg/dL (9-16); Calcium 9.7 mg/dL (8.4-10.2); Carbon Dioxide 23 mmol/L (22-29); Chloride 112 mmol/L (96-108); Creatinine Clr Calc Pharmacy 93.2; Estimated Glomerular Filt Rate > 60; Glucose Random 97 mg/dL (60-115); Potassium 4.1 mmol/L (3.3-5.1); Sodium 141 mmol/L (135-145); Total Protein 7.2 g/dL (6.5-8.0)
[2023-03-06 16:05] LABS: UPreg QC Valid YES; Urine Pregnancy NEGATIVE (NEGATIVE)
[2023-03-06 16:06] LABS: Appearance Urine Clear; Color Urine Yellow; Glucose Urine UA Negative (Negative); Leukocyte Esterase Urine Small (1+) (Negative); Nitrite Urine Negative (Negative); PH 5.5 (5.0-9.0); Specific Gravity - Urine 1.025 (1.005-1.025); UMIC TRIGGER UACC YES; Urine Blood Small (1+) (Negative); Urine Ketones Trace mg/dL (Negative); Urine Protein Negative (Neg-Trace)
[2023-03-06 16:07] LABS: INTERNATIONAL NORM RATIO 1.2 (0.9-1.1); Prothrombin Time 14.7 SEC (11.1-13.3)
--- OUTSIDE RECORDS SUMMARY | 2023-03-06 16:18 | XMS_ITS | Continuity of Care Document ---
Author Name Unknown Organization [facility] Address [address] [place] [address]- Care Team Providers Care Millwright Name Role Phone Not on Staff, PCP Primary Care Physician Unavail able [place] [facility] [place] [facility] [place] - 12/04/22 [facility] [address] [address]- Attending Physician: Catie Goldstein MD Admitting Physician: Catie Goldstein MD Referring Physician: Kimber Woods CNM Allergies, Adverse Reactions, Alerts No Known Allergies Immunizations Given and Recorded Vaccine Date Status Refusal Reason SARS-CoV-2 mRNA (syiaodu-nfgh-xmxen) vax 1 09/16/20 Recorded SARS-CoV-2 mRNA (jyftlvk-wbsc-kvrpk) vax 2 07/19/20 Recorded 1Result Comment: In [place] 2Result Comment: Received vaccines [place] Medications ferrous sulfate 325 mg oral tablet See Instructions, 1 tablet By Mouth every other day, # 90 tablet, 1 Refills, Maintenance, 09/01/22 14:02:00 EST, Tablet, [facility]/pharmacy #[id number], Partial fill upon patient request if the prescription is for a schedule II opioid drug., 159, cm, 07/29/22 11:... Start Date: 09/01/22 Status: Ordered PNV By Mouth, Daily, 0 Refills, Maintenance, 07/29/22 11:30:00 EST, Partial fill upon patient request if the prescription is for a schedule II opioid drug. Start Date: 07/29/22 Status: Ordered Multivitamins with Folic Acid 1 mg oral tablet 1 tablet, By Mouth, Daily, # 90 tablet, 2 Refills, Maintenance, 07/29/22 11:48:00 EST, [facility]/pharmacy#[id number], Partial fill upon patient request if the prescription is for a schedule II opioid drug., 1 tablet By Mouth Daily, 159, cm, 07/29/22 11:24:00 EST... Start Date: 07/29/22 Status: Ordered Problem List Condition Confirmation Course Effective Dates Status Health St atus Informant Marginal insertion of umbilical cord affecting management of mother Confirmed Active Anemia during Confirmed Active Abnormal ultrasound Confirmed Active Social History Social History Type Response Smoking Status Never (less than 100 in lifetime) entered on: 07/29/22 Sex Patient Care team information Care Team Personnel Name: Not on Staff, PCP Position: S Physician (General Medicine) Member Role: PCP
--- OUTSIDE RECORDS SUMMARY | 2023-03-06 16:18 | XMS_ITS | Continuity of Care Document ---
Author Name Unknown Organization [facility] Address [address] [place] [address]- Care Team Providers Care Immunopathologist Name Role Phone Not on Staff, PCP Primary Care Physician Unavail able Encounter [facility] Date(s): 11/12/22 - 12/18/[address] [address]- Attending Physician: Catie Goldstein MD Admitting Physician: Catie Goldstein MD Referring Physician: Kimber Woods CNM Allergies, Adverse Reactions, Alerts No Known Allergies Immunizations Given and Recorded Vaccine Date Status Refusal Reason SARS-CoV-2 mRNA (ensbuaf-cvzn-detck) vax 1 09/16/20 Recorded SARS-CoV-2 mRNA (hnnsrxq-ypjv-zjqrx) vax 2 07/19/20 Recorded 1Result Comment: In [place] 2Result Comment: Received vaccines in [place] Medications ferrous sulfate 325 mg oral tablet See Instructions, 1 tablet By Mouth every other day, # 90 tablet, 1 Refills, Maintenance, 09/01/22 14:02:00 EST, Tablet, [facility]/pharmacy #[id number], Partial fill upon patient request if the [...] tablet, 2 Refills, Maintenance, 07/29/22 11:48:00 EST, [facility]/pharmacy#[id number], Partial fill upon patient request if the prescription is for a schedule II opioid drug., 1 tablet By Mouth Daily, 159, cm, 07/29/22 11:24:00 EST... Start Date: 07/29/22 Status: Ordered Social History Social History Type Response Smoking Status Never (less than 100 in lifetime) entered on: 07/29/22 Sex Patient Care team information Care Team Personnel Name: Not on Staff, PCP Position: S Physician (General Medicine) Member Role: PCP Care Team Related Persons Name: KRISHAN ESTRADA Address: [id number] Address: [address] [place] [address] [place] Name: [facility]
--- OUTSIDE RECORDS SUMMARY | 2023-03-06 16:18 | XMS_ITS | Continuity of Care Document ---
Author Name Unknown Organization [facility] Address [address] [place] [address]- Care Team Providers Care Press Tender Short Goods Name Role Phone Not on Staff, PCP Primary Care Physician Unavail able Encounter [facility] [place] Date(s): 08/20/22 - 09/19/[address] [address]- Allergies, Adverse Reactions, Alerts No Known Allergies Immunizations Given and Recorded Vaccine Date Status Refusal Reason SARS-CoV-2 mRNA (gqbmshp-idsa-rdima) vax 1 09/16/20 Recorded SARS-CoV-2 mRNA (vywvqpb-adcs-izdvt) vax 2 07/19/20 Recorded 1Result Comment: In [place] 2Result Comment: Received vaccines in [place] Medications azithromycin 500 mg oral tablet 2 tablet = 1,000 mg, By Mouth, Once, # 2 tablet, 0 Refills, Soft Stop, 09/17/22 14:57:00 EST, Tablet, [facility]/pharmacy #[id number], Partial fill upon patient request if the prescription is for a schedule II opioid drug., 159, cm, 09/16/22 14:02:00 EST, Height Start Date: 09/17/22 Status: Ordered ferrous sulfate 325 mg oral tablet See Instructions, 1 tablet By Mouth every other day, # 90 tablet, 1 Refills, Maintenance, 09/01/22 14:02:00 EST, Tablet, [id number], Partial fill upon patient request if the [...] tablet, 2 Refills, Maintenance, 07/29/22 11:48:00 EST, [id number], Partial fill upon patient request if the [...]
--- OUTSIDE RECORDS SUMMARY | 2023-03-06 16:18 | XMS_ITS | Continuity of Care Document ---
Author Name Unknown Organization [facility] Address [address] [place] [address]- Care Team Providers Care Mine Environmental Engineer Name Role Phone Not on Staff, PCP Primary Care Physician Unavail able Encounter [facility] Date(s): 09/11/22 - 10/11/[address] [address]- Allergies, Adverse Reactions, Alerts No Known Allergies Immunizations Given and Recorded Vaccine Date Status Refusal Reason SARS-CoV-2 mRNA (mremjod-oqor-kamll) vax 1 09/16/20 Recorded SARS-CoV-2 mRNA (aqjluhk-nvgj-iibjo) vax 2 07/19/20 Recorded 1Result Comment: In [place] 2Result Comment: Received vaccines in [place] Medications azithromycin 500 mg oral tablet 2 [...] Personnel Name: Not on Staff, PCP Position: [facility] Physician (General Medicine) Member Role: PCP
--- OUTSIDE RECORDS SUMMARY | 2023-03-06 16:18 | XMS_ITS | Continuity of Care Document ---
Author Name Unknown Organization [facility] Address [address] [place] [address]- Care Team Providers Care Civil Rights Representative Name Role Phone Not on Staff, PCP Primary Care Physician Unavail able Encounter [facility] Date(s): 09/16/22 - 12/11/[address] [address]- Attending Physician: Kimber Woods CNM Admitting Physician: Kimber Woods CNM Allergies, Adverse Reactions, Alerts No Known Allergies Immunizations Given and Recorded Vaccine Date Status Refusal Reason SARS-CoV-2 mRNA (qiutlzi-puje-fwmuj) vax 1 09/16/20 Recorded SARS-CoV-2 mRNA (dausrbj-vrwx-pievt) vax 2 07/19/20 Recorded 1Result Comment: In [place] 2Result Comment: Received vaccines in [place] Medications ferrous sulfate 325 mg oral tablet See Instructions, 1 tablet By Mouth every other day, # 90 tablet, 1 Refills, Maintenance, 09/01/22 14:02:00 EST, Tablet, [facility]/pharmacy #[id number], Partial fill upon patient request if the [...] tablet, 2 Refills, Maintenance, 07/29/22 11:48:00 EST, [facility]/pharmacy#[id number], Partial fill upon patient request if the [...] [facility] Physician (General Medicine) Member Role: PCP Care Team Related Persons Name: PT , ONE
--- OUTSIDE RECORDS SUMMARY | 2023-03-06 16:18 | XMS_ITS | Continuity of Care Document ---
Author Name Unknown Organization [facility] Address [address] [place] [address]- Care Team Providers Care Cylinder Tester Name Role Phone Not on Staff, PCP Primary Care Physician Unavail able Encounter [facility] Date(s): 08/24/22 - 10/10/[address] [address]- Attending Physician: Kimber Woods CNM Admitting Physician: Kimber Woods CNM Referring Physician: Not on Staff, Referring MD Allergies, Adverse Reactions, Alerts No Known Allergies Immunizations Given and Recorded Vaccine Date Status Refusal Reason SARS-CoV-2 mRNA (fihldhc-hzxo-bcycr) vax 1 09/16/20 Recorded SARS-CoV-2 mRNA (kscggws-rehn-rqtku) vax 2 07/19/20 Recorded 1Result Comment: In [place] 2Result Comment: Received vaccines in [place] Medications azithromycin 500 mg oral tablet 2 [...] tablet, 2 Refills, Maintenance, 07/29/22 11:48:00 EST, [facility]/pharmacy#[id number], Partial fill upon patient request if the [...]
--- OUTSIDE RECORDS SUMMARY | 2023-03-06 16:18 | XMS_ITS | Continuity of Care Document ---
Author Name Unknown Organization [facility] Address [address] [place] [address]- Care Team Providers Care Over The Road Driver Name Role Phone Not on Staff, PCP Primary Care Physician Unavail able Encounter [facility] Date(s): 09/16/22 - 12/25/[address] [address]- Attending Physician: Kimber Woods CNM Admitting Physician: Kimber Woods CNM Allergies, Adverse Reactions, Alerts No Known Allergies Immunizations Given and Recorded Vaccine Date Status Refusal Reason SARS-CoV-2 mRNA (eictqqe-erng-rudhd) vax 1 09/16/20 Recorded SARS-CoV-2 mRNA (lvpplaw-bamv-eyyse) vax 2 07/19/20 Recorded 1Result Comment: In [place] 2Result Comment: Received vaccines in [place] Medications ferrous sulfate 325 mg oral tablet See Instructions, 1 tablet By Mouth every other day, # 90 tablet, 1 Refills, Maintenance, 09/01/22 14:02:00 EST, Tablet, [id number], Partial fill upon patient request if the [...] tablet, 2 Refills, Maintenance, 07/29/22 11:48:00 EST, [facility]/pharmacy#[id number], Partial fill upon patient request if the [...] PCP Care Team Related Persons Name: PT STATES, ONE Name: FERNANDA FRITZ Address: [id number] Address: home [address] [place] [address]
--- OUTSIDE RECORDS SUMMARY | 2023-03-06 16:18 | XMS_ITS | Continuity of Care Document ---
Author Name Unknown Organization [facility] Address [address] [place] [address]- Care Team Providers Care Section Laborer Name Role Phone Not on Staff, PCP Primary Care Physician Unavail able Encounter [facility] Date(s): 11/25/22 - 12/25/[address] [address]- Allergies, Adverse Reactions, Alerts No Known Allergies Immunizations Given and Recorded Vaccine Date Status Refusal Reason SARS-CoV-2 mRNA (jwpxoai-recp-edoaf) vax 1 09/16/20 Recorded SARS-CoV-2 mRNA (oxbayvv-lupq-uicjj) vax 2 07/19/20 Recorded 1Result Comment: In [place] 2Result Comment: Received vaccines in [place] Medications ferrous sulfate 325 mg oral tablet [...] PT STATES, ONE Name: FERNANDA FRITZ Address: [address] Address: [address]
--- OUTSIDE RECORDS SUMMARY | 2023-03-06 16:18 | XMS_ITS | Continuity of Care Document ---
Author Name Unknown Organization [facility] Address [address] [place] [address]- Care Team Providers Care Executive Legal Secretary Name Role Phone Not on Staff, PCP Primary Care Physician Unavail able Encounter [facility] Date(s): 12/02/22 - 01/15/[address] [address]- Attending Physician: Not on Staff, Attending MD Allergies, Adverse Reactions, Alerts No Known Allergies Immunizations Given and Recorded Vaccine Date Status Refusal Reason SARS-CoV-2 mRNA (apbdono-ijhz-icdyo) vax 1 09/16/20 Recorded SARS-CoV-2 mRNA (wnruxug-pizm-eqwdu) vax 2 07/19/20 Recorded 1Result Comment: In [place] 2Result Comment: Received vaccines in [place] Medications ferrous sulfate 325 mg oral tablet [...] PT STATES, ONE Name: FERNANDA FRITZ Address: [id number] Address: home [address] [place] [address]
--- OUTSIDE RECORDS SUMMARY | 2023-03-06 16:18 | XMS_ITS | Continuity of Care Document ---
Author Name Unknown Organization [facility] Address [address] [place] [address]- Care Team Providers Care Recruiting Team Lead Name Role Phone Not on Staff, PCP Primary Care Physician Unavail able [facility]counter [facility] Date[facility]s): 11/19/22 - 12/25/[address] [address]- Attending Physician: Catie Goldstein MD Admitting Physician: Catie Goldstein MD Referring Physician: Kimber Woods CNM Allergies, Adverse Reactions, Alerts No Known Allergies Immunizations Given and Recorded Vaccine Date Status Refusal Reason SARS-CoV-2 mRNA (dxcpxqh-snrp-rgqno) vax 1 09/16/20 Recorded SARS-CoV-2 mRNA (pcvtiyi-xnpb-icezd) vax 2 07/19/20 Recorded 1Result Comment: In [place] 2Result Comment: Re[place] vaccines in [place] Medications ferrous sulfate 325 mg oral tablet See Instructions, 1 tablet By Mouth every other day, # 90 tablet, 1 Refills, Maintenance, 09/01/22 14:02:00 EST, Tablet, [facility]/pharmacy #[id number], Partial fill upon patient request if the [...] tablet, 2 Refills, Maintenance, 07/29/22 11:48:00 EST, [facility]/pharmacy#[id number], Partial fill upon patient request if the [...] PT STATES, ONE Name: FERNANDA FRITZ Address: [id number] Address: home [address] [place] [address]
--- OUTSIDE RECORDS SUMMARY | 2023-03-06 16:18 | XMS_ITS | Continuity of Care Document ---
Author Name Unknown Organization [facility] Address [address] [place] [address]- Care Team Providers Care Emergency Manager Name Role Phone Not on Staff, PCP Primary Care Physician Unavail able Encounter [facility] Date(s): 09/16/22 - 12/18/[address] [address]- Attending Physician: Kimber Woods CNM Admitting Physician: Kimber Woods CNM Allergies, Adverse Reactions, Alerts No Known Allergies Immunizations Given and Recorded Vaccine Date Status Refusal Reason SARS-CoV-2 mRNA (ujyulbv-tqxp-otiam) vax 1 09/16/20 Recorded SARS-CoV-2 mRNA (faupyzr-tnhf-lxsea) vax 2 07/19/20 Recorded 1Result Comment: In [place] 2Result Comment: [place] Medications ferrous sulfate 325 mg oral tablet See Instructions, 1 tablet By Mouth every other day, # 90 tablet, 1 Refills, Maintenance, 09/01/22 14:02:00 EST, Tablet, [id number], Partial fill upon patient request if the [...] tablet, 2 Refills, Maintenance, 07/29/22 11:48:00 EST, [facility]/pharmacy#[id number], Partial fill upon patient request if the [...] Team Related Persons Name: KRISHAN ESTRADA Address: [id number] Address: [place] [address] [place] Name: ALEYDA HERRERA, ROSY
--- OUTSIDE RECORDS SUMMARY | 2023-03-06 16:18 | XMS_ITS | Continuity of Care Document ---
Author Name Unknown Organization [facility] Address [address] [place] [address]- Care Team Providers Care Steerer Name Role Phone Not on Staff, PCP Primary Care Physician Unavail able [facility]counter [facility] Date(s): 12/03/22 - 01/08/[address] [address]- Attending Physician: Catie Goldstein MD Admitting Physician: Catie Goldstein MD Referring Physician: Kimber Woods CNM Allergies, Adverse Reactions, Alerts No Known Allergies Immunizations Given and Recorded Vaccine Date Status Refusal Reason SARS-CoV-2 mRNA (bqfurql-tfns-udvfq) vax 1 09/16/20 Recorded SARS-CoV-2 mRNA (liacyrb-epwx-eoepm) vax 2 07/19/20 Recorded 1Result Comment: In [place] 2Result Comment: Received vaccines in [place] Medications ferrous sulfate 325 mg oral tablet See Instructions, 1 tablet By Mouth every other day, # 90 tablet, 1 Refills, Maintenance, 09/01/22 14:02:00 EST, Tablet, [facility]/pharmacy #[id number], Partial fill upon patient request if the [...] Refills, Maintenance, 07/29/22 11:48:00 EST, [facility]/pharmacy#[id number], Partial fill upon patient request if the [...] PT STATES, ONE Name: FERNANDA FRITZ Address: [address] Address: home [address] [place] [address]
--- OUTSIDE RECORDS SUMMARY | 2023-03-06 16:18 | XMS_ITS | Continuity of Care Document ---
Author Name Unknown Organization [facility] Address [address] [place] [address]- Care Team Providers Care Head Counselor Name Role Phone Not on Staff, PCP Primary Care Physician Unavail able Encounter [facility] Date(s): 07/07/22 - 08/06/22 [facility] [address] [address]- Allergies, Adverse Reactions, Alerts No Known Allergies Immunizations Given and Recorded Vaccine Date Status Refusal Reason SARS-CoV-2 mRNA (sdagjgp-hemc-cwvsc) vax 1 09/16/20 Recorded SARS-CoV-2 mRNA (adufapr-fwso-qofcd) vax 2 07/19/20 Recorded 1Result Comment: In [place] 2Result Comment: Received vaccines [place] Medications PNV By Mouth, Daily, 0 Refills, Maintenance, 07/29/22 11:30:00 EST, Partial fill upon patient request if the prescription is for a schedule II opioid drug. Start Date: 07/29/22 Status: Ordered Multivitamins with Folic Acid 1 mg oral tablet 1 tablet, By Mouth, Daily, # 90 tablet, 2 Refills, Maintenance, 07/29/22 11:48:00 EST, [facility]/pharmacy#[id number], Partial fill upon patient request if [...]
[2023-03-06 16:19] LABS: Bacteria Urine None Seen (None Seen); Hyaline Casts Urine 0-2 /LPF (0-2); RBC Urine 0-2 /HPF (0-2); UACC Culture Trigger YES
--- OUTSIDE RECORDS SUMMARY | 2023-03-06 16:19 | XMS_ITS | Continuity of Care Document ---
Author Name Unknown Organization [facility] Address [address] [place] [address]- Care Team Providers Care Veterinarian Name Role Phone Not on Staff, PCP Primary Care Physician Unavail able [place] [facility] [place] 08/20/22 - 09/19/22 [facility] [address] [place] [address] Attending Physician: Elana Horowitz Admitting Physician: AdmElana ybarra Referring Physician: Admtr, Ar8 Allergies, Adverse Reactions, Alerts No Known Allergies Immunizations Given and Recorded Vaccine Date Status Refusal Reason SARS-CoV-2 mRNA (lcaixcx-qnon-vwcae) vax 1 09/16/20 Recorded SARS-CoV-2 mRNA (hiqrgde-nqdv-zment) vax 2 07/19/20 Recorded 1Result Comment: In [place] 2Result Comment: Received vaccines in [place] Medications azithromycin 500 mg oral tablet 2 [...]
--- OUTSIDE RECORDS SUMMARY | 2023-03-06 16:19 | XMS_ITS | Continuity of Care Document ---
Author Name Unknown Organization [facility] Address [address] [place] [address]- Care Team Providers Care Bonding Molder Name Role Phone Not on Staff, PCP Primary Care Physician Unavail able [facility] Date(s): 12/09/22 - 01/15/[address] [address]- Attending Physician: Not on Staff, Attending MD Allergies, Adverse Reactions, Alerts No Known Allergies Immunizations Given and Recorded Vaccine Date Status Refusal Reason SARS-CoV-2 mRNA (fdjgygq-wfxo-nodos) vax 1 09/16/20 Recorded SARS-CoV-2 mRNA (lvqpezi-qrij-vfxyp) vax 2 07/19/20 Recorded 1Result Comment: In [place] 2Result Comment: Re[place] vaccines in [place] Medications ferrous sulfate 325 mg oral tablet [...] PT STATES, ONE Name: FERNANDA FRITZ Address: [address] Address: home [address] [place] [address]
--- OUTSIDE RECORDS SUMMARY | 2023-03-06 16:19 | XMS_ITS | Continuity of Care Document ---
Author Name Unknown Organization [facility] Address [address] [place] [address]- Care Team Providers Care Organ Fixer Name Role Phone Not on Staff, PCP Primary Care Physician Unavail able [facility]counter [facility] Date(s): 11/25/22 - 12/26/[address] [address]- Attending Physician: Kimber Woods CNM Admitting Physician: Kimber Woods CNM Allergies, Adverse Reactions, Alerts No Known Allergies Immunizations Given and Recorded Vaccine Date Status Refusal Reason SARS-CoV-2 mRNA (bwsjiul-srkd-hspba) vax 1 09/16/20 Recorded SARS-CoV-2 mRNA (cskyhmz-tyrp-pmvbr) vax 2 07/19/20 Recorded 1Result Comment: In [place] 2Result Comment: Re[place] vaccines [place] Medications ferrous sulfate 325 mg oral tablet See Instructions, 1 tablet By Mouth every other day, # 90 tablet, 1 Refills, Maintenance, 09/01/22 14:02:00 EST, Tablet, [id number], Partial fill upon patient request if the [...] 2 Refills, Maintenance, 07/29/22 11:48:00 EST, [facility]/pharmacy#[id number], Partial fill upon patient request if the [...] PT STATES, ONE Name: FERNANDA FRITZ Address: [address] Address: home [address] [place] [address]
--- OUTSIDE RECORDS SUMMARY | 2023-03-06 16:19 | XMS_ITS | Continuity of Care Document ---
Author Name Unknown Organization [facility] Address [address] [place] [address]- Care Team Providers Care Coat Cutter Name Role Phone Not on Staff, PCP Primary Care Physician Unavail able En[place] [facility] Date(s): 09/16/22 - 10/30/[address] [address]- Attending Physician: Kimber Woods CNM Admitting Physician: Kimber Woods CNM Allergies, Adverse Reactions, Alerts No Known Allergies Immunizations Given and Recorded Vaccine Date Status Refusal Reason SARS-CoV-2 mRNA (dbjhecl-xamm-ekyfl) vax 1 09/16/20 Recorded SARS-CoV-2 mRNA (awoecdi-pyvf-mtcvx) vax 2 07/19/20 Recorded 1Result Comment: In [place] 2Result Comment: [place] Medications azithromycin 500 mg oral tablet 2 [...]
--- OUTSIDE RECORDS SUMMARY | 2023-03-06 16:19 | XMS_ITS | Continuity of Care Document ---
Author Name Unknown Organization [facility] Address [address] [place] [address]- Care Team Providers Care Poultry Raiser Name Role Phone Not on Staff, PCP Primary Care Physician Unavail able [facility]counter [facility] Date(s): 09/10/22 - 10/11/[address] [address]- Attending Physician: Janelle Romero CNM Admitting Physician: Janelle Romero CNM Referring Physician: Not on Staff, Referring MD Allergies, Adverse Reactions, Alerts No Known Allergies Immunizations Given and Recorded Vaccine Date Status Refusal Reason SARS-CoV-2 mRNA (hoeivcm-imrw-gxvaz) vax 1 09/16/20 Recorded SARS-CoV-2 mRNA (bqtdtum-fvmx-kjktw) vax 2 07/19/20 Recorded 1Result Comment: In [place] 2Result Comment: Received vaccines in [place] Medications azithromycin 500 mg oral tablet 2 [...] tablet, 2 Refills, Maintenance, 07/29/22 11:48:00 EST, [facility]/pharmacy#[id number], Partial fill upon patient request if the [...]
--- OUTSIDE RECORDS SUMMARY | 2023-03-06 16:19 | XMS_ITS | Continuity of Care Document ---
Author Name Unknown Organization [facility] Address [address] [place] [address]- Care Team Providers Care Hot Oiler Name Role Phone Not on Staff, PCP Primary Care Physician Unavail able [facility]counter [facility] Date(s): 11/25/22 - 12/27/[address] [address]- Attending Physician: Kimber Woods CNM Admitting Physician: Kimber Woods CNM Referring Physician: Kimber Woods CNM Allergies, Adverse Reactions, Alerts No Known Allergies Immunizations Given and Recorded Vaccine Date Status Refusal Reason SARS-CoV-2 mRNA (iawunwg-xono-vfhdf) vax 1 09/16/20 Recorded SARS-CoV-2 mRNA (qsgsprx-mljw-xtuoz) vax 2 07/19/20 Recorded 1Result Comment: [place] 2Result Comment: [place] Medications ferrous sulfate 325 mg oral tablet See Instructions, 1 tablet By Mouth every other day, # 90 tablet, 1 Refills, Maintenance, 09/01/22 14:02:00 EST, Tablet, [id number], Partial fill upon patient request if the [...] tablet, 2 Refills, Maintenance, 07/29/22 11:48:00 EST, [facility]/pharmacy#[id number], Partial fill upon patient request if the [...] PT STATES, ONE Name: FERNANDA FRITZ Address: [address] Address: [address]
--- OUTSIDE RECORDS SUMMARY | 2023-03-06 16:19 | XMS_ITS | Continuity of Care Document ---
Author Name Unknown Organization [facility] Address [address] [place] [address]- Care Team Providers Care Airline Dispatcher Name Role Phone Not on Staff, PCP Primary Care Physician Unavail able [facility]counter [facility] Date(s): 12/17/22 - 02/25/[address] [address]- Attending Physician: Kimber Woods CNM Admitting Physician: Kimber Woods CNM Allergies, Adverse Reactions, Alerts No Known Allergies Immunizations Given and Recorded Vaccine Date Status Refusal Reason SARS-CoV-2 mRNA (vaeoyfe-srla-sllrl) vax 1 09/16/20 Recorded SARS-CoV-2 mRNA (yebfhfu-unzc-vpjmg) vax 2 07/19/20 Recorded 1Result Comment: In [place] 2Result Comment: Received vaccines in [place] Medications ferrous sulfate 325 mg oral tablet See Instructions, 1 tablet By Mouth every other day, # 90 tablet, 1 Refills, Maintenance, 09/01/22 14:02:00 EST, Tablet, [id number], Partial fill upon patient request if the [...] tablet, 2 Refills, Maintenance, 07/29/22 11:48:00 EST, [facility]/pharmacy#[id number], Partial fill upon patient request if the [...] PT STATES, ONE Name: FERNANDA FRITZ Address: [address] Address: home [address] [place] [address]
--- OUTSIDE RECORDS SUMMARY | 2023-03-06 16:19 | XMS_ITS | Continuity of Care Document ---
Author Name Unknown Organization [facility] Address [address] [place] [address]- Care Team Providers Care Bundle Tier Name Role Phone Not on Staff, PCP Primary Care Physician Unavail able [facility]counter [facility] Date(s): 12/02/22 - 01/07/[address] [address]- Attending Physician: Catie Goldstein MD Admitting Physician: Catie Goldstein MD Referring Physician: Paola Lopez CNM Allergies, Adverse Reactions, Alerts No Known Allergies Immunizations Given and Recorded Vaccine Date Status Refusal Reason SARS-CoV-2 mRNA (preyvyi-xfgm-ldsks) vax 1 09/16/20 Recorded SARS-CoV-2 mRNA (kqxllfd-wcnc-jkupt) vax 2 07/19/20 Recorded 1Result Comment: In [place] 2Result Comment: Re[place] vaccines in [place] Medications ferrous sulfate 325 mg oral tablet See Instructions, 1 tablet By Mouth every other day, # 90 tablet, 1 Refills, Maintenance, 09/01/22 14:02:00 EST, Tablet, [facility]/pharmacy #[id number], Partial fill upon patient request if the [...] 2 Refills, Maintenance, 07/29/22 11:48:00 EST, [facility]/pharmacy#[id number], Partial fill upon patient request if [...] PT STATES, ONE Name: FERNANDA FRITZ Address: [address] Address: home [address] [place] [address]
--- OUTSIDE RECORDS SUMMARY | 2023-03-06 16:19 | XMS_ITS | Continuity of Care Document ---
Author Name Unknown Organization [facility] ter Address [address] [place] [id number] Care Team Providers Care Manager Infusion Name Role Phone Not on Staff, PCP Primary Care Physician Unavail able Encounter [facility] [place] Date(s): 12/16/22 - 12/18/[address] [address]- Discharge Disposition: A-D/C Home Attending Physician: Noah Giles MD Admitting Physician: Noah Giles MD Referring Physician: Paola Lopez CNM Allergies, Adverse Reactions, Alerts No Known Allergies Immunizations Given and Recorded Vaccine Date Status Refusal Reason SARS-CoV-2 mRNA (bchtqsy-khql-izsqp) vax 1 09/16/20 Recorded SARS-CoV-2 mRNA (kwsnvaw-zjld-gwwgs) vax 2 07/19/20 Recorded 1Result Comment: [place] 2Result Comment: [place] vaccines [place] Medications Acetaminophen Tablet 650 mg, Tablet, By Mouth, Every 4 hours, PRN for Pain , Mild, (1-3), may give 325mg per patient preference and re-dose with 325mg within 4 hours, if needed. Patient should only receive a total of 650mg of Acetaminophen every 4 hours., Routine, 12/16... Start Date: 12/16/22 Stop Date: 12/18/22 Status: Discontinued ferrous sulfate 325 mg oral tablet See Instructions, 1 tablet By Mouth every other day, # 90 tablet, 1 Refills, Maintenance, 09/01/22 14:02:00 EST, Tablet, [id number], Partial fill upon patient request if the prescription is for a schedule II opioid drug., 159, cm, 07/29/22 11:... Start Date: 09/01/22 Status: Ordered Ibuprofen Tablet 800 mg, Tablet, By Mouth, Every 8 hours, PRN for Pain , Moderate, (4-6), may give 400mg per patientpreference and re-dose with 400mg within 8 hours if needed. Patient should only receive a total of 800mg of Ibuprofen every 8 hours., Routine, ... Start Date: 12/16/22 Stop Date: 12/18/22 Status: Discontinued PNV By Mouth, Daily, 0 Refills, Maintenance, 07/29/22 11:30:00 EST, Partial fill upon patient request if the prescription is for a schedule II opioid drug. Start Date: 07/29/22 Status: Ordered Multivitamins with Folic Acid 1 mg oral tablet 1 tablet, By Mouth, Daily, # 90 tablet, 2 Refills, Maintenance, 07/29/22 11:48:00 EST, [id number], Partial fill upon patient request if the prescription is for a schedule II opioid drug., 1 tablet By Mouth Daily, 159, cm, 07/29/22 11:24:00 EST... Start Date: 07/29/22 Status: Ordered Vital Signs Most recent to oldest [Reference Range]: 1 2 3 4 Height 159 cm (12/18/22 8:00 AM) 159 cm (12/18/22 12:05 AM) 159 cm (12/17/22 9:31 PM) Weight 54.8 kg (12/16/22 8:45 AM) Oxygen Saturation [94-100 %] 99 % (12/18/22 12:05 AM) 99 % (12/17/22 4:00 AM) 100 % (12/16/22 9:53 PM) Pulse Rate [55-90 bpm] 82 bpm (12/18/22 8:00 AM) 86 bpm (12/18/22 12:05 AM) 81 bpm (12/17/22 8:00 AM) Body Mass Index [18.5-24.99 kg/m2] 21.68 kg/m2 (12/16/22 8:45 AM) Blood Pressure [90-138/55-84 mm Hg] 120/76mm Hg (12/18/22 8:00 AM) 130/86mm Hg (12/18/22 12:05 AM) 120/56mm Hg (12/17/22 8:00 AM) Respiratory Rate [16-30 br/min] 18 br/min (12/18/22 8:00 AM) 18 br/min (12/18/22 6:40 AM) 18 br/min (12/18/22 2:33 AM) 17 br/min (12/18/22 2:33 AM) Temperature [96.8-100.4 DegF] 98.4 DegF (12/18/22 8:00 AM) 98.6 DegF (12/18/22 12:05 AM) 97.7 DegF (12/17/22 8:00 AM) Mode of Delivery (Oxygen) Room air (12/18/22 12:05 AM) Room air (12/17/22 4:00 AM) Room air (12/16/22 9:53 PM) Blood pressure sites Arm, left (12/16/22 5:26 PM) Arm, left (12/16/22 4:24 PM) Arm, left (12/16/22 3:43 PM) Temperature Route Oral (12/18/22 8:00 AM) Oral (12/18/22 12:05 AM) Oral (12/17/22 8:00 AM) Dry Weight 54.8 kg (12/16/22 8:45 AM) Social History Social History Type Response Smoking Status Never (less than 100 in lifetime) entered on: 07/29/22 Sex History and physical note * Dionne SÁNCHEZ, Antonia: MODIFY, PERFORM Event Display: History and Physical Hospital Authored Date: Patient: ??KRISHAN ESTRADA ? Age:??22 Years?Sex:??Female?:??2000?? OB Reason for Admission OB Reason for Admission Reason for admission: Induction of labor Reason for Induction: Late term Method of Induction: Pitocin LMP/EGA/FAM Gestational Age (EGA) and FAM? * Note: EGA calculated as of 12/16/2022 ?? FAM:??12/15/2022?EGA*:??40 weeks 1 day ? History?(1,0,0,1)?Method:??Ultrasound??(04/22/2022) History of Present Illness Krishan is a??22??yo @ 40w1d gestation??presenting for IOL in the setting of marginal cord insertion. She is also starting to feel contractions 2 in 10 minutes but overall comfortable and feeling well. She denies??loss of fluid or vaginal bleeding.??Endorses good movement. Denies fever/chills, THOMPSON, dizziness, changes in vision, CP, SOB, RUQ pain, UE/LE swelling. Review of Systems Constitutional: Denies fever, chills, fatigue. HEENT: Denies headache, changes in vision. CV: Denies chest pain or palpitations. Resp: Denies shortness of breath. GI: Denies abdominal pain,??nausea, vomiting, constipation,??diarrhea. : Denies vaginal bleeding, pain, discharge, dysuria, hematuria, urinary urgency/frequency. Musculoskeletal: Denies pain, swelling, arthralgia. Physical Exam Vitals & Measurements T:??98.1?F?? HR:??83??(Peripheral)?? HR:??93??(Monitored)?? RR:??17?? BP:??131/80?? SpO2:??96%?? HT:??159??cm?? WT:??54.8??kg?? BMI:??21.68?? Constitutional:??Well-developed, no acute distress. Respiratory:??Equal chest rise bilaterally, no labored breathing.? Cardiovascular:??Regular rate and rhythm.? Abdomen/GI:??Soft, non-tender, non-distended, no guarding or rebound tenderness.??Gravid. Gynecologic:?External Genitalia: Normal exam, without lesions. ??Vagina: No lesions, well-rugated. ??Cervix: Normal exam, no lesions. Extremities:??Warm and well-perfused.?? Skin:??Normal for ethnicity. Neurological/Psychiatric:??Appearance appropriate, mood and affect stable. Presentation confirmed by:??Vertex by US OB Assessment Cervical Cervical Dilatation4 cm Cervical Tfpowazjhl61% Station-2 Assessment/Plan Assessment:??22 yo @ 40w1d gestation admitted IOL in the setting of marginal cord insertion. GBS negative. Induction starting with Pitocin. Cat I tracing. ?? Encounter for induction of labor (Z34.90):? - Induction plan: Pitocin - CEFM - GBS negative - Low risk PPH - Pain control: Eventually an epidural - Re-eval in 2 hrs or prn ?? - Baby boy, desires circ - PPBC: PPTL, consents signed ?? Anemia (D64.9):? - PO iron, compliant (p) H/H on admission ?? Chlamydia infection (A74.9):?? 09/17: pt notified and Zithromax 1gm sent to pharmacy (p) AKI 12/02/22 ?? Late care, antepartum (O09.30):? - NOB 27.1 wks ?? Marginal insertion of umbilical cord affecting management of mother in third trimester (O43.193):?? - Hypocoiled cord as well MFM recommendation: (x) Growth US at 32wk: Ordered (pt did not complete) (x) Growth US at 36wks: Ordered (pt has no showed multiple appts, no US in 3rd trimester) 12/07: PDC growth completed, wnl ?? Unwanted fertility (Z30.09):? - Requesting PPTL 09/16: Consent signed and copy given to pt, all questions answered at this time ?? OB History History?(1,0,0,1)? # 1 ?Baby 1 ?Outcome Date:??2020 ?Outcome or Result:??Vaginal ?Gest Age:??Fullterm ? Outcome:??Live ? Sex:??Female ?Child's Name:??Shey ?[facility] Labs Labs & Tests ABO: O (08/20/22) Antibody Screen: Negative (08/20/22) Chlamydia Trachomatis Amplified Probe: NEGATIVE (12/02/22) Glucose 50 Gm, +60 Minutes: 128 mg/dL (09/16/22) Hct: 37.8 % (12/16/22) Hemoglobinopathy Interpretation: Normal hemoglobins, with anemia. (08/20/22) Hepatitis B Surface Antigen: NEGATIVE (08/20/22) Hepatitis C Ab: NEGATIVE (08/20/22) Hgb:??11.4 Gm/dL??Low (12/16/22) HIV 4th Generation Ab-Ag Result: NEGATIVE (08/20/22) RH Test Only: Positive (08/20/22) RPR Titer Result: NOT INDICATED (09/16/22) Rubella IgG Ab: POSITIVE (08/20/22) Syphilis Screen by JULIAN: NEGATIVE (09/16/22) Urine Culture: Urine Culture (08/20/22) Varicella IgG Ab: POSITIVE (08/20/22) Problem List Active Active Problem List Abnormal ultrasound: (Medical) Anemia during : (Medical) Marginal insertion of umbilical cord affecting management of mother: (Medical) : (Obstetric) (04/22/22) Procedure/Surgical History Vaginal delivery Home Medications Ferrous Sulfate: See Instructions, 1 tablet By Mouth every other day Multivitamin, : By Mouth, Daily Multivitamin, : 1 tablet, By Mouth, Daily Allergies NKA Social History Alcohol Use: Never. Electronic Cigarette/Vaping Electronic Cigarette Use: Never. Employment/School Status: Homemaker. Exercise Self assessment: Good condition. Home/Environment Lives with: [place] family . Other: TO[place]O Vanessa . Nutrition/Health Diet: Regular. Sexual Sexually involved in last 6 months: Yes. Gender identity: Identifies as female. Self described orientation: Straight or heterosexual. Substance Abuse Use: Current. Type: Marijuana. Other: Stopped at 6 weeks . Tobacco Use: Never (less than 100 in lifetime). Family History Mother: Negative Father: Unknown (origin) Plan No Data Found Hospital Progress note * Julieta Sabillon LPN: PERFORM, SIGN, VERIFY Event Display: Progress Note Hospital Authored Date: Patient: KRISHAN ESTRADA Age: 22 years Sex: Female : 2000 Associated Diagnoses: None Author: Julieta Sabillon LPN Pt out of bed ad carmen ambulating in room frequently. Taking in food and fluids well without nausea. Pt voiding without difficulty, jm care reviewed. Patient states pain is well controlled on currentmedication regime. Mild rubra flow with no clots noted. Pt using Tucks to jm area. Caring for appropriately, will continue to monitor. Call rincon within reach. * Kimber Oakley RN: PERFORM, SIGN, VERIFY Event Display: Progress Note Hospital Authored Date: [id number] Patient: KRISHAN ESTRADA Age: 22 years Sex: Female : 2000 Associated Diagnoses: None Author: Kimber Oakley RN Patient obstetrically stable and resting comfortably with at bedside. Parents caring for appropriately. formula feeding well. Correct position noted, audible suction noted while . EPDS completed and charted. Pt medicated with PRN tylenol, motrin and colace as needed. all needs met at this time. * Jaki Hernandez MD: PERFORM, MODIFY Event Display: Progress Note Hospital Authored Date: Patient: ??KRISHAN ESTRADA ? Age:??22 Years?Sex:??Female?:??2000?? Subjective Patient is feeling well with no acute concerns. States her pain is well controlled with PO pain medications. Her lochia is??gift basket packer than a normal period. She is ambulating, voiding spontaneously, andtolerating regular diet. Denies fever, chills, chest pain, shortness of breath,??persistent headache, vision changes, RUQ pain, calf tenderness, nausea, vomiting, or other??acute concerns.??Mood is??appropriate and she is bonding well with her baby. Patient??reports that she has a??good support system at home. ?? Patient desires permanent contraception via tubal surgery. She previously signed sterilization consents on 09/16 which are in her chart. After thorough discussion, patient elects for interval laparoscopic bilateral salpigectomy with DepoProvera as bridge contraception. The risks of surgery were discussed with the patient including but not limited to bleeding (intraoperative and postoperative), infection, injury to surrounding organs (bowel, bladder, ureter), uterine perforation and possibly having to perform laparoscopy or laparotomy, thromboembolic event, nerve injury, complications relatedto general anesthesia, conversion to laparoscopy or laparotomy and . ??The patient??would??accept a blood transfusion if needed.?Informed consent signed today. ?? Review of Systems Constitutional:??No fever, chills or weakness?? HEENT:??No vision changes. No congestion Skin:??No rash or itching Cardiovascular:??No chest pain or palpitations Respiratory:??No shortness of breath Gastrointestinal:??No nausea, vomiting. Appropriate abdominal soreness, adequately controlled Genitourinary:??No burning, urinary frequency or incontinence Gynecologic:??No discharge or itching. Lochia minimal Neurologic:??No headache, dizziness, syncope Psychiatric:??No mood concerns at this time Physical Exam Vitals & Measurements T:??97.8?F?? HR:??61??(Peripheral)?? RR:??18?? BP:??134/88?? SpO2:??99%?? HT:??159??cm?? WT:??54.8??kg?? BMI:??21.68?? Constitutional:??No acute distress, resting comfortably. Respiratory:??Normal work of breathing. Breathing comfortably on room air. Cardiovascular:??No signs of fluid overload. Abdomen/GI:??Soft, non-distended, no guarding, no rebound tenderness.??Fundus firm below umbilicus with mild tenderness. Gynecologic:??Minimal lochia. No swelling or hematoma. Extremities:??No calf tenderness or edema. Skin:??No rash or jaundice. Neurological/Psychiatric:??Mood and affect congruent and stable. Assessment/Plan Assessment:??22 yo @ 40w1d gestation admitted IOL in the setting of late term . Induction with Pitocin. Patient proceeded to have uncomplicated on 12/16. ?? state (Z39.2):? - Expected discharge to home PPD2 - Continue routine care - Diet: Regular - Pain control: Ibuprofen & Tylenol - Encourage ambulation - sex: male - Circumcision: declined - PPBC: interval tubal surgery, bridge with depo (ordered) - Follow-up: in 4-6 wks for visit / preop tubal ?? Unwanted fertility (Z30.09):? 09/16: Consent signed and copy given to pt, all questions answered at this time 12/17: Patient affirms desire for permanent contraception via tubal surgery, desires interval laparoscopic bilateral salpingectomy. Surgical consent signed. ?? Late care, antepartum (O09.30):? - NOB 27.1 wks - 3 visits (p) UTox on LDRP (p) SW consult ?? Chlamydia infection (A74.9):??09/17: pt notified and Zithromax 1gm sent to pharmacy negative AKI 12/02/22 ?? OB Summary : 2 Parity: 1 . Baby A - Weight: 2.956 kg Baby A - Date, Time of : 12/16/22 19:34:00 Baby A - Gender: Male Baby A - Complications: Meconium stained fluid EGA at Documented Date, Time: 40W 1D Weight at Delivery Baby A - Delivery Type: Vaginal Delivery Complications: None OB History History?(1,0,0,1)? # 1 ?Baby 1 ?Outcome Date:??2020 ?Outcome or Result:??Vaginal ?Gest Age:??Fullterm ? Outcome:??Live ? Sex:??Female ?Child's Name:??Shey ?[facility] Active Problem List Active Problem List Abnormal ultrasound: (Medical) Anemia during : (Medical) Marginal insertion of umbilical cord affecting management of mother: (Medical) : (Obstetric) (04/22/22) Home Medications Ferrous Sulfate: See Instructions, 1 tablet By Mouth every other day Multivitamin, : By Mouth, Daily Multivitamin, : 1 tablet, By Mouth, Daily Medications Medications (5) Active SCHEDULED: (1) MedroxyPROGESTERone Acetate 150 mg Inj (MedroxyPROGESTERone Acetate Inj) ??150 mg 1 mL, Intramuscular, On Discharge CONTINUOUS: (0) PRN: (4) Acetaminophen 325 mg Tablet (Acetaminophen Tablet) ??650 mg, By Mouth, Every 4 hours Calcium Carbonate 500 mg (Calcium 200 mg) Chewable Tablet (Tums 500 mg Tablet) ??1,000 mg 2 tablet,Chew, 3 times a day Docusate Sodium 100 mg Capsule (Docusate Sodium Capsule) ??100 mg 1 capsule, By Mouth, 2 times a day Ibuprofen 800 mg Tablet (Ibuprofen Tablet) ??800 mg, By Mouth, Every 8 hours Note * Cathy Holcomb: PERFORM Event Display: Care Team Progress Note Authored Date: Patient: ??KRISHAN ESTRADA ? Age:??22 Years?Sex:??Female?:??2000?? Subjective patient is formula feeding only OB Summary : 2 Parity: 1 . Baby A - Weight: 2.956 kg Baby A - Date, Time of : 12/16/22 19:34:00 Baby A - Gender: Male Baby A - Complications: Meconium stained fluid EGA at Documented Date, Time: 40W 1D Weight at Delivery Baby A - Delivery Type: Vaginal Delivery Complications: None OB History History?(1,0,0,1)? # 1 ?Baby 1 ?Outcome Date:??2020 ?Outcome or Result:??Vaginal ?Gest Age:??Fullterm ? Outcome:??Live ? Sex:??Female ?Child's Name:??Cophianeylee ?[facility]ospital:[facility] Active Problem List Active Problem List : (Obstetric) (04/22/22) Home Medications Ferrous Sulfate: See Instructions, 1 tablet By Mouth every other day Multivitamin, : By Mouth, Daily Multivitamin, : 1 tablet, By Mouth, Daily Medications Medications (4) Active SCHEDULED: (0) CONTINUOUS: (0) PRN: (4) Acetaminophen 325 mg Tablet (Acetaminophen Tablet) ??650 mg, By Mouth, Every 4 hours Calcium Carbonate 500 mg (Calcium 200 mg) Chewable Tablet (Tums 500 mg Tablet) ??1,000 mg 2 tablet,Chew, 3 times a day Docusate Sodium 100 mg Capsule (Docusate Sodium Capsule) ??100 mg 1 capsule, By Mouth, 2 times a day Ibuprofen 800 mg Tablet (Ibuprofen Tablet) ??800 mg, By Mouth, Every 8 hours * Julieta Sabillon LPN: PERFORM Event Display: Discharge/Transfer Note Hospital Authored Date: [id number] Nursing Discharge Note Entered On: 12/18/2022 11:14 EDT Performed On: 12/18/2022 11:13 EDT by Julieta Sabillon LPN Nursing Discharge Note 2 Discharge Time : 12/18/2022 11:10 EDT Discharge Level of Care at Discharge : Home/Halfway/Foster Care Patient Left Unit Via : Ambulance Patient Accompanied Off Unit with : Significant other, Other: DC Instructions Provided & Signed by Pt : Yes Patient Understands D/C Instructions : Yes Patient Instructions Discharge Signed : Yes Did Pt have Specialty Bed or Wound Vac : No Julieta Sabillon LPN - 12/18/2022 11:13 EDT * Antonia Truong MD: PERFORM, MODIFY Event Display: Discharge/Transfer Note Hospital Authored Date: [id number] Patient: ??KRISHAN ESTRADA ? Age:??22 Years?Sex:??Female?:??2000?? Admit Date Admission Date: 12/16/2022 Discharge Date 12/18/2022 OB Reason for Admission OB Reason for Admission Reason for admission: Induction of labor Reason for Induction: Late term Method of Induction: [facility] 22??yo @ 40w1d gestation??admitted IOL in the setting of marginal cord insertion. Patient proceeded to have uncomplicated on 12/16. Meeting appropriate post- milestones on day of discharge. Objective/Physical Exam on Day of Discharge Vitals & Measurements T:??98.6?F?? HR:??86??(Peripheral)?? RR:??18?? BP:??130/86?? SpO2:??99%?? HT:??159??cm?? WT:??54.8??kg?? BMI:??21.68?? Constitutional:??No acute distress, resting comfortably. Respiratory:??Normal work of breathing. Breathing comfortably on room air. Cardiovascular:??No signs of fluid overload. Abdomen/GI:??Soft, non-distended, no guarding, no rebound tenderness.??Fundus firm below umbilicus with mild tenderness. Gynecologic:??Minimal lochia. No swelling or hematoma. Extremities:??No calf tenderness or edema. Skin:??No rash or jaundice. Neurological/Psychiatric:??Mood and affect congruent and stable. Assessment/Plan/Discharge Diagnosis Assessment:??Krishan??is a 22??yo G2 now P2 s/p on??12/16.. Pain well controlled with prn ibuprofen/tylenol. control is DepoProvera, prior to her PPTL. The patient is meeting appropriate milestones. ?? state (Z39.2):? - Continue routine care - Pain control: Ibuprofen & Tylenol - PPBC: Interval tubal surgery, bridge with DepoProvera - Follow-up: in 4-6 wks for visit/preop tubal ?? Chlamydia infection (A74.9):? 09/17: pt notified and Zithromax 1gm sent to pharmacy - Negative AKI 12/02/22 ?? Unwanted fertility (Z30.09):? 09/16: Consent signed and copy given to pt, all questions answered at this time 12/17: Patient affirms desire for permanent contraception via tubal surgery, desires interval laparoscopic bilateral salpingectomy. Surgical consent signed. ?? Care: depression increased risk Future Appointments Wednesday 11:20 AM EDT ?? With: Chuck KRAMER, Kimber Nagel Where: [facility] - Hand Therapist [address] [place] [address]- Status: Pending Delivery Summary Delivery Summary Maternal Information ??Labor Information ?Baby A ?Labor Onset Methods: ??Induced ?Induction Methods: ??Amniotomy, Pitocin ??Delivery Information ?Gestational Age at Delivery: ??40W 1D ?Anesthesia OB: ??Epidural ??12/16/22 21:35:32, Epidural ??12/16/22 18:33:56 ?Obstetrical Laceration: ??Perineum intact, Labial laceration ?Labial Laceration: ??Right ?Delivery Complications: ??None ?Blood Loss(ml): ??300 mL ? Baby A ??Delivery Information ?Delivery Type: ??Vaginal ?Date, Time of : ??12/16/22 19:34:00 ?Delayed Cord Clamping: ??Yes ?Placenta Delivery Date/Time: ??12/16/22 19:40:00 ?Placenta Delivery Method: ??Spontaneous ?Placenta Appearance: ??Calcified (Modified) ?Placenta to Pathology: ??No ??Care Team ?Attending Provider: ??Noah Giles MD ?Delivery Physician: ??Jaki Hernandez MD ?Assembly Person Provider #1: ??Shana Baron DO ?pilot steam yacht #1: ??Chapo ABRAMS, Zeinab ?pilot steam yacht #2: ??Florentino ABRAMS, [place] ?Biometry Teacher: ??Alex Jones DO ?Anesthesiology Attending: ??Ky Marquez MD ?Time NICU Team Called: ??12/16/22 19:33:00 ??Labor Information ? monitoring: ??External monitor ?? Information ? Outcome: ??Live ? Position: ??Left occiput anterior ? Weight: ??2.956 kg ? Score 1 minute: ??8 ? Score 5 minute: ??9 ? Score 10 minute: ??9 ?Transferred To: ?? Care area with Family ?Umbilical Cord Description: ??3 vessel cord, Nuchal cord ?Nuchal cord times: ??1 ?Nuchal cord tension: ??Loose ?Nuchal cord Intervention: ??Other: delivered through ? Complications: ??None ?Gender: ??Male ? Procedures Performed Epidural Vaginal delivery ?? Discharge Medications ???Ferrous Sulfate (ferrous sulfate 325 mg oral tablet)???Multivitamin, (PNV )???Multivitamin, ( Multivitamins with Folic Acid 1 mg oral tablet) Immunizations during Hospitalization Vaccine Date Status SARS-CoV-2 mRNA (skoprxh-sory-jzzjc) vax 09/2020 Recorded Comments : [place] SARS-CoV-2 mRNA (engyqzp-ckmc-wwjka) vax 2020 Recorded Comments : Received vaccines [place] Contraception Interval tubal ligation Depoprovera ?? Infant Feeding Method [place] Feeding Method: Formula (12/16/22 19:45:00) * Julieta Sabillon LPN: PERFORM Event Display: Patient Education/Instruction Authored Date: [id number] Inpatient Adult Discharge Instructions [address] [address] Name: KRISHAN ESTRADA : 2000 Visit: 12/16/2022 08:22:00 Current Date: 12/18/2022 10:50 Account: [id number] Inpatient Adult Discharge Instructions We would like to thank you for allowing us to assist you with your healthcare needs. The following includes patient education materials and information regarding your injury/illness. Our entire staffstrives to provide an excellent experience for our patients and their families. PLEASE ENSURE YOU FOLLOW-UP PER THE INSTRUCTIONS BELOW! ?? YOUR OPINION IS IMPORTANT TO US! Please complete the survey you may receive by mail or email. Your feedback will be used to make improvements to the healthcare experiences of our patients and their families. Surveys are administered by [employer] ?? If further treatment with your primary care physician or another doctor is recommended, it is important for you to keep the appointment. Call your primary care physician or return to the Emergency Department immediately if your condition worsens, fails to improve, or new symptoms develop. If you need to find a doctor, you can call [facility] for a referral at [phone] or toll free at [phone]) or log in to [email or web address].. ?? You can view and manage your care through the patient portal or by using a health care leif of your choosing. [employer] is a website that allows you to securely view your medical information including your hospital discharge summary, office visit summaries, medications and follow-up visits. You can also request appointments, renew medications, and request access to your medical information using a health care leif of your choosing, or just ask a question. You can enroll at [email or web address] or register during your next office visit. You have been discharged from [facility], Patient Care Unit: [facility]. If you have any questions regarding these instructions after you leave, please call us and we will be happy to assist you. [facility] Your Care Team Attending Physician Tisha SÁNCHEZ, Noah Discharging Providers Antonia Truong MD Reason for Your Visit Induction of labor Your Diagnosis Anemia Chlamydia infection Encounter for induction of labor Insufficient care in third trimester Late care, antepartum Marginal insertion of umbilical cord affecting management of mother in third trimester state state Unwanted fertility Tests Performed Below is a partial list of the tests performed during your hospitalization. You may have had other tests and procedures not included in this list. Please discuss all test results with your provider. Amphetamine Urine with Confirmation Barbiturate Urine with Confirmation Benzodiazepine Urine with Confirmation Buprenorphine Screen w/Confirm, Urine CBC Cocaine Urine with Confirmation COVID-19 (2019 Novel Coronavirus) PCR?-- Results Pending -- Ethanol Urine Fentanyl Screen With Confirmation, Urine Methadone Urine with Confirmation Opiates Urine with Confirmation Oxycodone Urine with Confirmation PCP Urine with Confirmation Type and Screen You will be contacted within 72 hours with your results. Primary Care Provider Not on Staff, PCP Advance Directive . Discharge Vitals Temperature: 98.4 DegF Height: 159 cm Pulse Rate: 82 bpm Weight: 54.8 kg Respiratory Rate: 18 br/min Body Mass Index: 21.68 kg/m2 Systolic Blood Pressure: 120 mm Hg Body surface area: 1.56 Diastolic Blood Pressure: 76 mm Hg ?? Oxygen Saturation: 99 % ?? Studies Pending All tests and labs ordered during this hospital stay have been completed unless listed below. Please discuss all pending results with your provider listed above in these instructions. ?? COVID-19 (2019 Novel Coronavirus) PCR What to do next Instructions From Your Doctor Discharge Orders Instructions from your Care Team Discharge Care Instructions for the New Mom?? Please take a few moments to read through these helpful instructions before you leave the hospital.??Your nurse will be glad to answer any questions you may have. ??You can also find this and more information throughout the purple??Becoming a Family??booklet,??[facility]???[facility] New Beginnings Guide??and the?? Consultation Services Guide??given to you after the of your baby. ??You may also phone our nurses stations if you have further questions. ??[facility]: ??First Floor ([phone]). ?? Please call your provider if you have any questions or concerns ??before your next appointment. For ongoing support??please?Like?us on our Facebook page?[facility] New Beginnings?and sign up for our email newsletter at??[email or web address]. ??News and information will be sent to you??until your baby???s third birthday. Instructions for the New Mother Activity:?? For the next 2 weeks at home?no heavy lifting, avoid unnecessary stair climbing, and no driving (especially if you are taking medicine that may make you sleepy or feel that you are sleep deprived). ?? For the next 4-6 weeks - no tampons, no douches, no sexual intercourse. Use your jm bottle to rinse your perineum until your vaginal flow stops. ??If you have stitches in your bottom, they generally dissolve within 7-10 days. ??Apply Tucks/witch theo pads until your soreness subsides. ??Use your bathroom at home every 3 to 4 hours, rinse, and change your pads. Warm showers feel great on achy muscles, sore backs and sore bottoms. Exercise: Walking is the best form of exercise. ??Wait until your follow up appointment with your provider in4-6 weeks before engaging in more strenuous activity. Diet: Drink plenty of fluids to avoid constipation and to help support your recovery. Eat plenty of iron rich foods such as red meat, iron fortified cereals like Total and Cream of Wheat, raisins, prunes, greens and spinach. ??These will help to build your blood count back up as all women lose some blood after delivery. ??Also add foods rich in Vitamin C such as strawberries, oranges, papayas, kale and rincon peppers. Continue to take your vitamins if you are . ??If you are not follow the instructions of your provider. ??If you were prescribed iron supplements such as ferrous sulfate, it is important to continue these until your doctor or safety representative tells you to stop. ?? Breast Care for Bottle Feeding Mothers: Engorgement may occur within the first week after delivery. ??Your breasts may become hard and verytender. ??A cool compress of cleaned raw green cabbage leaves applied to the breast and changed as leaves wilt has been proven helpful for many women. ??Ice packs or frozen bags of peas also work nicely to ease the discomfort. ??The soreness will only last a couple of days. Keep your back turned to the water while showering to decrease breast stimulation. Wear a snug fitting bra such as a sports bra. ?? Control: You received a Depo Provera injection on 12/18/2022_. ??This control method is effective as long as you repeat it every 3 months.?Schedule your next dose before 03/19/2023_ . ?? Pain Management: Cramping after is common and increases in strength with each baby you have. ??If you experience painful cramps, and have no allergies to acetaminophen (Tylenol) or ibuprofen (Motrin), you may continue to take these medications as you did in the hospital. ??Ibuprofen is also helpful with back aches following epidurals, perineal pain following a vaginal delivery, and moderate incisional pain after a section or a tubal ligation. ?? If you experience gas distention, especially after surgery, you may take an over the counter medication called simethicone. ??Take these chewable tablets 4 times a day as needed and directed on the package. ??Keep moving. ??Walking or rocking in a chair, will help to move the gas along. ??Rico tea made with heated rico francis (instead of water) and a tea bag, stirred to dissolve carbonation (bubbles) is a helpful drink to soothe a gassy stomach. Warning Signs of a Problem to Notify Your Doctor or Contact Officer of: Heavy vaginal bleeding?which is??soaking a pad every hour??with bright red blood. Passing blood clots the size of an egg or larger. An incision that is not healing. A temperature greater than or equal to 100.4 especially if accompanied by any of the following symptoms?painful, frequent urination; extreme back or flank pain; lower belly pain with a foul smell to your vaginal flow; a red hard hot area on your breast. ?? Severe headache that does not go away after taking acetaminophen or ibuprofen. ?? A headache that changes your vision, including seeing spots or blurring. Right sided upper abdominal pain along the rib cage area. Pain in your legs that is warm and tender to the touch. depression signs may include?loss of interest in your baby, weepiness, difficulty focusing, weight loss with no appetite, exhaustion, feeling overwhelmed or anxious, feelings??of despair, or thoughts of harming yourself or your baby. ??These symptoms are important and should be discussed with your doctor or safety representative. depression may develop over a period of time and needs prompt medical attention. ??Do not suffer in silence. ??In both the??Becoming a Family??booklet and the??[facility]??New Beginnings Guide??there is a screening tool used to identify women at risk, called the [place] Scale which you have taken in the office prior to delivery and again during [facility]. ??Three to four weeks after your delivery, and before your check with your provider, take this test and share your results with your provider. ??Be sure to mention any score of 10 or more. ?? Many women, and even some partners, may experience the?baby blues?? . ??This is a state of feeling overwhelmed and weepy. ??Discomfort from childbirth, hormonal changes, exhaustion, changes to your body and lifestyle are a few of the things that contribute to the highs and lows new parents go through. ??Don???t be afraid to ask your partner or family and friends for some help at home so you can get some rest and a few minutes to yourself. ??The blues will quickly pass. Personal Safety: Every person has the right to feel safe at home and live free from physical or emotional harm. ??Ifyou have suffered mental or physical abuse at home, you are not alone. ??There is help. ??Please call HOTLINE or the [email or web address]CH Program at [phone]. Scheduled Follow-Up Appointments Wednesday 11:20 AM EDT ?? With: Kimber Woods CNM Where: [facility] - Hand Therapist [address] [place] [address]- Status: Pending Discharge Medications KRISHAN ESTRADA :2000 Visit Date:12/16/2022 Medications: Please continue your medications until treatment is completed or stopped by your provider. Medications not listed below should be discontinued. Discuss any questions related to medications with your provider. What How Much When Why Instructions Next Dose Unchanged Ferrous Sulfate (ferrous sulfate 325 mg oral tablet) See instructions Anemia during 1 tablet By Mouth every other day ?? tomorrow Unchanged Multivitamin, ( Multivitamins with Folic Acid 1 mg oral tablet) 1 tab(s) Oral Daily tomorrow Test Results Below is a partial list of the most recent Laboratory test results done prior to this discharge. You may have had other tests and procedures not included in this list. Please discuss all test resultswith your provider. Amphetamine Urine with Confirmation (12/17/2022) ???Amphetamine Screen, Urine - NONE DETECTED Barbiturate Urine with Confirmation (12/17/2022) ???Barbiturate Screen, Urine - NONE DETECTED Benzodiazepine Urine with Confirmation (12/17/2022) ???Benzodiazepine Screen, Urine - NONE DETECTED Buprenorphine Screen w/Confirm, Urine (12/17/2022) ???Buprenorphine Screen with Reflex, Urine - NONE DETECTED CBC (12/16/2022) ???WBC - 11.0 k/mm3???RBC - 4.76 m/mm3???Hgb - 11.4 Gm/dL???Hct - 37.8 %???MCV - 79.4 femtoliters???MCH - 23.9 pg???MCHC - 30.2 g/dL???Platelet Count - 158 k/mm3???RDW-SD - 47.3 femtoliters???MPV - 11.3 femtoliters???Nucleated RBC (Automated) - 0.0 #/100 WBC'S???Abs. NRBC - 0.0 k/mm3 Cocaine Urine with Confirmation (12/17/2022) ???Cocaine Metabolite Screen, Urine - NONE DETECTED Ethanol Urine (12/17/2022) ???Urine Alcohol - NONE DETECTED Fentanyl Screen With Confirmation, Urine (12/17/2022) ???Fentanyl Screen, Urine Result - NONE DETECTED Methadone Urine with Confirmation (12/17/2022) ???Methadone Screen, Urine - NONE DETECTED Opiates Urine with Confirmation (12/17/2022) ???Opiate Screen, Urine - NONE DETECTED Oxycodone Urine with Confirmation (12/17/2022) ???Oxycodone Screen, Urine - NONE DETECTED PCP Urine with Confirmation (12/17/2022) ???PCP Screen, Urine - NONE DETECTED Type and Screen (12/16/2022) ???Blood Type - O Positive???Antibody Screen - Negative Allergies (NKA means No Known Allergies) NKA Problems Active Problems??(1) ?? Education Materials Below is the list of Educational Leaflet Providered with your Discharge Instructions. Valuables and Belongings I fully understand and agree that [facility] accepts no responsibility for all my personal property including clothing, toilet articles, radios, jewelry, dentures, hearing aids, rings, money, or any other property that is in my possession or is brought to me after admission. I understand certain valuables may be placed in a hospital safe for a short period of time. I understand that the hospital is not liable for loss or damage due to accident, fire, or other natural occurrence while said property is in the safe. I accept full responsibility for any personal property that I keep with me, and will not hold the hospital responsible in case of loss or disappearance. I acknowledge that i have been encouraged to send valuables and belongings home. ?? No Valuables/Belongings: No valuables/belongings present Review of Valuable and Belonging List: With patient Date for Pt to Sign Valuables/Belongings: 12/17/22 11:17:00 ?? Other Discharge Information ? Pulmonary Rehab Status?? Pulmonary Rehab Discharge Status?? Respiratory Rate: 18 br/min ? Common Emergency Awareness Tips IS IT A STROKE? Act FAST and Check for these signs: FACE Does the face look uneven? ARM Does one arm drift down? SPEECH Does their speech sound strange? TIME Call at any sign of stroke ?? Heart Attack Signs Chest discomfort: Most heart attacks involve discomfort in the center of the chest and lasts more than a few minutes, or goes away and comes back. It can feel like uncomfortable pressure, squeezing, fullness or pain. Discomfort in upper body: Symptoms can include pain or discomfort in one or both arms, back, neck, jaw or stomach. Shortness of breath: With or without discomfort. Other signs: Breaking out in a cold sweat, nausea, or lightheaded. Remember, MINUTES DO MATTER. If you experience any of these heart attack warning signs, call to get immediate medical attention! ?? Smoking can increase your chances of developing chronic health problems and can cause harmful effects to other family members in your house. If you smoke, you are strongly encouraged to quit. Please call [facility] at [phone] or [phone] ([phone]) or log in to [email or web address] for referrals to smoking cessation programs. ?? 042 Suicide & Crisis Lifeline is available 08/02 if you or someone you know needs to find a reason to keep living. By calling 154 you'll be connected to a skilled, trained counselor at a crisis center in your area. INPATIENT DISCHARGE INSTRUCTIONS SIGNATURE PAGE KRISHAN ESTRADA Location:[facility] Registration Date and Time:12/16/2022 08:22 EDT Primary Care Physician: Not on Staff, PCP Attending Physician: Noah Giles MD, I KRISHAN ESTRADA, have received the above patient education materials/instructions and have verbalized understanding. If ambulance or transport services are being used I further acknowledge being given a choice of service. ?? If you need to contact me, please call me at this number: . Patient/Rag Grader Name: Patient/Rag Grader Signature: Relationship to Patient: Witness Name/Signature: Date: Patient Care team information Care Team Personnel Name: Not on Staff, PCP Position: [facility] Physician (General Medicine) Member Role: PCP Name: Shiloh Castillo RN Position: [facility] OB RN Member Role: OB RN Name: Julieta Sabillon LPN Position: [facility] OB RN Member Role: OB RN Care Team Related Persons Name: SEANKRISHAN Address: [place] [address] Address: [address] Name: ROSY HARDING
--- OUTSIDE RECORDS SUMMARY | 2023-03-06 16:19 | XMS_ITS | Continuity of Care Document ---
Author Name Unknown Organization [facility] Address [address] [place] [address]- Care Team Providers Care Laborer Demolition Name Role Phone Not on Staff, PCP Primary Care Physician Unavail able [facility]counter [facility] Date(s): 09/16/22 - 11/13/[address] [address]- Attending Physician: Not on Staff, Attending MD Allergies, Adverse Reactions, Alerts No Known Allergies Immunizations Given and Recorded Vaccine Date Status Refusal Reason SARS-CoV-2 mRNA (agluokc-lwgp-ykoeu) vax 1 09/16/20 Recorded SARS-CoV-2 mRNA (xbbbmqg-fvzv-mxesm) vax 2 07/19/20 Recorded 1Result Comment: In [place] 2Result Comment: Received vaccines in [place] Medications azithromycin 500 mg oral tablet 2 [...]
--- OUTSIDE RECORDS SUMMARY | 2023-03-06 16:19 | XMS_ITS | Continuity of Care Document ---
Author Name Unknown Organization [facility] Address [address] [place] [address]- Care Team Providers Care Patient Account Specialist Name Role Phone Not on Staff, PCP Primary Care Physician Unavail able Encounter [facility] Date(s): 05/27/22 - 06/26/22 [facility] [address] [place] [address]- Patient Care team information Care Team Personnel Name: Not on Staff, PCP Position: [facility] Physician (General Medicine) Member Role: PCP
--- OUTSIDE RECORDS SUMMARY | 2023-03-06 16:19 | XMS_ITS | Continuity of Care Document ---
Author Name Unknown Organization [facility] Address [address] [place] [address]- Care Team Providers Care Ceramics Instructor Name Role Phone Not on Staff, PCP Primary Care Physician Unavail able [facility]counter [facility] Date(s): 12/09/22 - 01/08/[address] [address]- Allergies, Adverse Reactions, Alerts No Known Allergies Immunizations Given and Recorded Vaccine Date Status Refusal Reason SARS-CoV-2 mRNA (sjcvome-xogk-tfqai) vax 1 09/16/20 Recorded SARS-CoV-2 mRNA (vrirdqh-gbbc-zjkrv) vax 2 07/19/20 Recorded 1Result Comment: In [place] 2Result Comment: Received vaccines in [place] Medications ferrous sulfate 325 mg oral tablet [...] PT STATES, ONE Name: FERNANDA FRITZ Address: [address] Address: [address]
--- OUTSIDE RECORDS SUMMARY | 2023-03-06 16:19 | XMS_ITS | Continuity of Care Document ---
Author Name Unknown Organization [facility] Address [address] [place] [address]- Care Team Providers Care Mechanical Unit Repairer Name Role Phone Not on Staff, PCP Primary Care Physician Unavail able Encounter [facility] Date(s): 09/01/22 - 10/01/[address] [address]- Allergies, Adverse Reactions, Alerts No Known Allergies Immunizations Given and Recorded Vaccine Date Status Refusal Reason SARS-CoV-2 mRNA (kmeqpxp-mbff-lkphj) vax 1 09/16/20 Recorded SARS-CoV-2 mRNA (omtjddw-tcbd-snrkr) vax 2 07/19/20 Recorded 1Result Comment: In [place] 2Result Comment: Received vaccines in [place] Medications azithromycin 500 mg oral tablet 2 [...]
--- OUTSIDE RECORDS SUMMARY | 2023-03-06 16:19 | XMS_ITS | Continuity of Care Document ---
Author Name Unknown Organization [facility] Address [address] [place] [address]- Care Team Providers Care Enologist Name Role Phone Not on Staff, PCP Primary Care Physician Unavail able [facility]counter [facility] Date(s): 09/16/22 - 01/08/[address] [address]- Attending Physician: Kimber Woods CNM Admitting Physician: Kimber Woods CNM Allergies, Adverse Reactions, Alerts No Known Allergies Immunizations Given and Recorded Vaccine Date Status Refusal Reason SARS-CoV-2 mRNA (quhcdbt-uoth-votwk) vax 1 09/16/20 Recorded SARS-CoV-2 mRNA (xaojksa-esmz-ytsqv) vax 2 07/19/20 Recorded 1Result Comment: In [place] 2Result Comment: Received vaccines in [place] Medications ferrous sulfate 325 mg oral tablet See Instructions, 1 tablet By Mouth every other day, # 90 tablet, 1 Refills, Maintenance, 09/01/22 14:02:00 EST, Tablet, [id number], Partial fill upon patient request if the [...] Maintenance, 07/29/22 11:48:00 EST, [id number], Partial fill upon patient request if the [...] PT STATES, ONE Name: FERNANDA FRITZ Address: [address] Address: home [address] [place] [address]
--- OUTSIDE RECORDS SUMMARY | 2023-03-06 16:19 | XMS_ITS | Continuity of Care Document ---
Author Name Unknown Organization [facility] Address [address] [place] [phone]- Care Team Providers Care Parts Room Assistant Name Role Phone Not on Staff, PCP Primary Care Physician Unavail able [facility]counter [facility] Date(s): 12/03/22 - 01/02/[address] [address]- Attending Physician: Kimber Woods CNM Admitting Physician: Kimber Woods CNM Referring Physician: Kimber Woods CNM Allergies, Adverse Reactions, Alerts No Known Allergies Immunizations Given and Recorded Vaccine Date Status Refusal Reason SARS-CoV-2 mRNA (rwultfz-blvz-bhark) vax 1 09/16/20 Recorded SARS-CoV-2 mRNA (oszjryy-sper-pjqre) vax 2 07/19/20 Recorded 1Result Comment: In [place] 2Result Comment: Received vaccines in [place] Medications ferrous sulfate 325 mg oral tablet See Instructions, 1 tablet By Mouth every other day, # 90 tablet, 1 Refills, Maintenance, 09/01/22 14:02:00 EST, Tablet, [id number], Partial fill upon patient request if the [...] tablet, 2 Refills, Maintenance, 07/29/22 11:48:00 EST, [facility]/pharmacy#[id number], Partial fill upon patient request if the [...] PT STATES, ONE Name: FERNANDA FRITZ Address: [address] Address: [address]
--- OUTSIDE RECORDS SUMMARY | 2023-03-06 16:19 | XMS_ITS | Continuity of Care Document ---
Author Name Unknown Organization [facility] Address [address] [place] [address]- Care Team Providers Care Econometrician Name Role Phone Not on Staff, PCP Primary Care Physician Unavail able [facility]counter [facility] Date(s): 06/02/22 - 07/02/22 [facility] [address] [place] [address]- Patient Care team information Care Team Personnel Name: Not on Staff, PCP Position: [facility] Physician (General Medicine) Member Role: PCP
--- OUTSIDE RECORDS SUMMARY | 2023-03-06 16:19 | XMS_ITS | Continuity of Care Document ---
Author Name Unknown Organization [facility] Address [address] [place] [id number]- Care Team Providers Care Turn Down Worker Name Role Phone Not on Staff, PCP Primary Care Physician Unavail able [facility]counter [facility] Date[facility]s): 06/02/22 - 06/02/[address] [address] Discharge Disposition: A-D/C Home Attending Physician: Zoila Perez CNM Admitting Physician: Zoila Perez CNM Referring Physician: Zoila Perez CNM Note * Event Display: PDC Nuchal Transluscency * Event Display: PDC Nuchal Transluscency Authored Date: [id number] OBSTETRICS REPORT PATIENT INFO: CMRN: [id number] BMRN: [id number] : [birth year] (22 yrs)(F) Name: KRISHAN ESTRADA Visit Date: 06/02/2022 03:52 pm PERFORMED BY: Performed By: Lori Champion RDMS Attending: Leah Kwong MD Referred By: Zoila Perez CNM Location[facility] INDICATIONS: First Trimester NT Screening Z36.82 EVALUATION: Num Of Fetuses: 1 Heart Rate(bpm): 143 Cardiac Activity: Present Placenta: Anterior Amniotic Fluid ROBSON FV: Within normal limits Comment: Active movements seen. BIOMETRY: GESTATIONAL AGE: LMP: 12w 0d Date: 03/10/22 FAM: 12/15/22 Best: 12w 0d Det. By: LMP (03/10/22) FAM: 12/15/22 1ST TRIMESTER GENETIC SONOGRAM SCREENING: CRL: 59.4 mm G.Age: 12w 3d FAM: 12/12/22 Nuc Trans: 1.9 mm ANATOMY: Cranium: SEEN Choroid Plexus: SEEN Heart: SEEN Stomach: SEEN Abdominal Wall: SEEN Cord Vessels: 3-vessel cord Spine: SEEN Upper Extremities: SEEN Lower Extremities: SEEN CERVIX UTERUS ADNEXA: Cervix Appears closed Left Ovary Appears normal Right Ovary Appears normal Cul De Sac No fluid seen Adnexa No anomalies noted COMMENTS: The nuchal translucency portion of the first trimester screen was done, and the patient was sent to the lab for the biochemical markers portion of the test. The results should be sent by the lab to your office. Leah Kwong MD Electronically Signed Final Report 06/02/2022 04:34 pm * Event Display: PDC Nuchal Transluscency Authored Date: Please click on pdf link to open report * Ledy Rey: PERFORM Event Display: Patient Education/Instruction Authored Date: [id number] Inpatient Adult Discharge Instructions [address] [address] Name: KRISHAN ESTRADA : 2000 Visit: 06/02/2022 14:43:00 Current Date: 06/02/2022 19:26 Account: [id number] Inpatient Adult Discharge Instructions We would like [...] and their families. Surveys are administered by [employer] ?? If further treatment with your primary care physician or another doctor is recommended, it is important for you to keep the appointment. Call your primary care physician or return to the Emergency Department immediately if your condition worsens, fails to improve, or new symptoms develop. If you need to find a doctor, you can call [facility] for a referral at [phone] or toll free at [phone] or log in to [email or web address].. ?? You can view and manage your care through the patient portal or by using a health care leif of your choosing. [employer] is a website that allows you to securely view your medical information including your hospital discharge summary, office visit summaries, medications and follow-up visits. You can also request appointments, renew medications, and request access to your medical information using a health care leif of your choosing, or just ask a question. You can enroll at [email or web address] or register during your next office visit. You have been discharged from [facility], Patient Care Unit: Diagnostic [facility]. If you have any questions regarding these instructions after you leave, please call us and we will be happy to assist you. [facility] Your Care Team Attending Physician Zoila Perez CNM Reason for Admission 12 15 22 Your Diagnosis Encounter for screening for nuchal translucency Tests Performed Below is a partial list of the tests performed during your hospitalization. You may have had other tests and procedures not included in this list. Please discuss all test results with your provider. Primary Care Provider Not on Staff, PCP Advance Directive Health Care Proxy on File No No qualifying data available. Studies Pending All tests and labs ordered during this hospital stay have been completed unless listed below. Please discuss all pending results with your provider listed above in these instructions. ?? No incomplete studies found What to do next Instructions From Your Doctor Discharge Orders Discharge Medications KRISHAN ESTRADA :2000 Visit Date:06/02/2022 Medications: Please continue your medications until treatment is completed or stopped by your provider. Medications not listed below should be discontinued. Discuss any questions related to medications with your provider. Test Results Below is a partial list of the most recent Laboratory test results done prior to this discharge. You may have had other tests and procedures not included in this list. Please discuss all test resultswith your provider. Allergies (NKA means No Known Allergies) No active allergies Problems No qualifying data available Education Materials Below is the list of Educational Leaflet Providered with your Discharge Instructions. Valuables and Belongings I fully understand and agree that [facility] accepts no responsibility for all my personal [...] encouraged to send valuables and belongings home. ? Common Emergency Awareness Tips IS IT [...] are strongly encouraged to quit. Please call [facility] Link at [phone] or [phone] ([phone]) or log in to [email or web address] for referrals to smoking cessation programs. ?? The National Suicide Prevention Hotline is available 08/02 if you or someone you know needs to find a reason to keep living. By calling 5-542-529-Connect[place].com (0443) you'll be connected to a skilled, trained counselor at a crisis center in your area. INPATIENT DISCHARGE INSTRUCTIONS SIGNATURE PAGE ANGELA ESTRADAANNAMARIA LUISA Location:[facility] Registration Date and Time:06/02/2022 14:43 EST Primary Care Physician: Not on Staff, PCP KRISHAN CLAYTON, have received the above patient education materials/instructions and have verbalized understanding. If ambulance or transport services are being used I further acknowledge being given a choice of service. ?? If you need to contact me, please call me at this number: . Patient/Sponge Packer Name: Patient/Sponge Packer Signature: Relationship to Patient: Witness Name/Signature: Date: * Ledy Rey: PERFORM, SIGN, VERIFY Event Display: Patient Education Handout Authored Date: [id number] Patient Care team information Care Team Personnel Name: Not on Staff, PCP Position: S Physician (General Medicine) Member Role: PCP
--- OUTSIDE RECORDS SUMMARY | 2023-03-06 16:19 | XMS_ITS | Continuity of Care Document ---
Author Name Unknown Organization [facility] Address [address] [place] [address]- Care Team Providers Care Software Recruiter Name Role Phone Not on Staff, PCP Primary Care Physician Unavail able [facility]counter [facility] Date(s): 08/04/22 - 09/09/[address] [address]- Attending Physician: Catie Goldstein MD Admitting Physician: Catie Goldstein MD Referring Physician: Kimber Woods CNM Allergies, Adverse Reactions, Alerts No Known Allergies Immunizations Given and Recorded Vaccine Date Status Refusal Reason SARS-CoV-2 mRNA (wqhibmy-tktl-yadsj) vax 1 09/16/20 Recorded SARS-CoV-2 mRNA (imzqsqq-uibe-hagnv) vax 2 07/19/20 Recorded 1Result Comment: In [place] 2Result Comment: Received vaccines in [place] Medications ferrous sulfate 325 mg oral tablet See Instructions, 1 tablet By Mouth every other day, # 90 tablet, 1 Refills, Maintenance, 09/01/22 14:02:00 EST, Tablet, [facility]/pharmacy #[id number], Partial fill upon patient request if the [...] tablet, 2 Refills, Maintenance, 07/29/22 11:48:00 EST, [facility]/pharmacy#[id number], Partial fill upon patient request if [...]
--- OUTSIDE RECORDS SUMMARY | 2023-03-06 16:19 | XMS_ITS | Continuity of Care Document ---
Author Name Unknown Organization [facility] Address [address] [place] [id number]- Care Team Providers Care Time Recorder Name Role Phone Not on Staff, PCP Primary Care Physician Unavail able [facility]counter [facility] Date(s): 11/05/22 - 12/11/[address] [address]- Attending Physician: Catie Goldstein MD Admitting Physician: Catie Goldstein MD Referring Physician: Kimber Woods CNM Allergies, Adverse Reactions, Alerts No Known Allergies Immunizations Given and Recorded Vaccine Date Status Refusal Reason SARS-CoV-2 mRNA (tlnmebq-wzdv-uvwka) vax 1 09/16/20 Recorded SARS-CoV-2 mRNA (arbjrdz-faku-xjorh) vax 2 07/19/20 Recorded 1Result Comment: In [place] 2Result Comment: Received vaccines in [place] Medications ferrous sulfate 325 mg oral tablet See Instructions, 1 tablet By Mouth every other day, # 90 tablet, 1 Refills, Maintenance, 09/01/22 14:02:00 EST, Tablet, [facility]/pharmacy #[id number], Partial fill upon patient request if the [...] tablet, 2 Refills, Maintenance, 07/29/22 11:48:00 EST, [facility]/pharmacy#[id number], Partial fill upon patient request if [...]
--- OUTSIDE RECORDS SUMMARY | 2023-03-06 16:19 | XMS_ITS | Continuity of Care Document ---
Author Name Unknown Organization [facility] Address [address] [place] [id number]- Care Team Providers Care Booth Cleaner Name Role Phone Not on Staff, PCP Primary Care Physician Unavail able Encounter [facility] Date(s): 01/26/23 - 02/25/[address] [address]- Attending Physician: Elana Horowitz Admitting Physician: Elana Horowitz Referring Physician: Elana Horowitz Allergies, Adverse Reactions, Alerts No Known Allergies Immunizations Given and Recorded Vaccine Date Status Refusal Reason SARS-CoV-2 mRNA (ajkcaxh-yzqc-oxgcn) vax 1 09/16/20 Recorded SARS-CoV-2 mRNA (wudsjao-hqcp-lllzq) vax 2 07/19/20 Recorded 1Result Comment: In [place] 2Result Comment: Received vaccines in [place] Medications ferrous sulfate 325 mg oral tablet See Instructions, 1 tablet By Mouth every other day, # 90 tablet, 1 Refills, Maintenance, 09/01/22 14:02:00 EST, Tablet, [facility]/pharmacy #[id number], Partial fill upon patient request if the [...] PT STATES, ONE Name: FERNANDA FRITZ Address: [address] Address: [address]
[2023-03-07 02:33] LABS: CT PCR DETECTED (Not Detect.); NG PCR NOT DETECTED (Not Detect.)
[2023-03-07 14:47] LABS: BV Int Neg Control Negative (Negative); BV Int Pos Control Positive (Positive)
== END 2023-03-06 17:24 | disposition home or self-care (01) ==
PROVIDERS: Nurse Practitioner Family; Registered Nurse Emergency; Emergency Provider Emergency Medicine
DX: N93.9 Abnormal uterine and vaginal bleeding, unspecified (principal)
CPT/HCPCS: 0353U; 36415; 76830; 76856; 80048; 80076; 81001; 81003; 81025; 85025; 85610; 87086; 87088; 87480; 87510; 87660; 99282; 99284

== ENCOUNTER 2024-05-19 15:50 | Emergency (ER) | payer MEDICAID, SELFPAY ==
[2024-05-19 16:00] VITALS: BP 140/90; PULSE 89; RESP 20; TEMP 37.1; O2SAT 100; BMI 18.6
--- NOTE | 2024-05-19 16:09 | ED.FEMALEGU ---
HPI - Female Genitourinary General Chief complaint: General Medical Stated complaint: abd pain Related Data Previous Rx's ?Medication ?Instructions ?Recorded doxylamine succinate 25 mg tablet 25 mg PO BEDTIME PRN sleep #30 tabs 05/07/22 (Unisom (doxylamine)) vitamin with calcium 1 tab PO DAILY #90 tabs 05/07/22 no.72-iron 27 mg-folic acid 1 mg tablet ( Vitamins Plus Low Iron) pyridoxine (vitamin B6) 25 mg 25 mg PO TID #90 tabs 05/07/22 tablet doxycycline hyclate 100 mg tablet 100 mg PO BID 7 days #14 tabs 04/05/23 metronidazole 500 mg tablet 500 mg PO BID 7 days #14 tabs 04/05/23 Allergies Allergy/AdvReac Type Severity Reaction Status Date / Time No Known Allergies Allergy Verified 05/19/24 16:11 [No Known Allergies*] [facility] Social History Social History (Updated 05/07/22 @ 13:51 by TRACY Gregory) Substance Use Type: Marijuana Advance Directives: No Advance Directives Information Provided: No Do you have a plan to hurt others: No Plan Physical Exam Vital Signs: Vital Signs: Last Vital Signs Temp 98.7 F 05/19/24 16:00 Pulse 89 05/19/24 16:00 Resp 20 05/19/24 16:00 BP 140/90 H 05/19/24 16:00 Pulse Ox 100 05/19/24 16:00 O2 Del Method Room Air 05/19/24 16:00 BMI result Body Mass Index 18.6 Course Course Course Narrative: This is a Rapid Medical Examination (RME) performed by Precious Hutchinson PA-C in triage. Full HPI, ROS, assessment and treatment plan per primary provider in the Main ED. 24 yo female here for eval of watery, clear vaginal discharge x24 hours. admits to recent unprotected intercourse. not on control. states she was supposed to start her period this week. endorses change of and STI. would like to be tested. denies fever, abd pain, vaginal lesions, dysuria. Plan: UA, u preg, CT/NG Reevaluation(s) Reevaluation #1: Patient left the emergency department before myself or any of the other clinicians could review or explain physical exam findings, test results, need or lack there of for additional testing, treatment options, or a treatment plan. Discharge Plan Discharge Clinical Impression: Vaginal discharge Patient Disposition: Left W/O Completing Treatment Prescriptions: No Action doxycycline hyclate 100 mg tablet 100 mg PO BID 7 Days Qty: 14 0RF metronidazole 500 mg tablet 500 mg PO BID 7 Days Qty: 14 0RF Vitamin Plus Low Iron 27 mg iron- 1 mg tablet 1 tab PO DAILY Qty: 90 4RF Unisom (doxylamine) 25 mg tablet 25 mg PO BEDTIME PRN (Reason: sleep) Qty: 30 0RF pyridoxine (vitamin B6) 25 mg tablet 25 mg PO TID Qty: 90 1RF Discharge Date/Time: 05/19/24 20:18
--- NOTE | 2024-05-19 20:15 | PC.NURSE ---
Patient wanted to leave (LWCT) said she had to go home to her kids, she couldn't wait any longer. Pt was waiting to be picked up by a provider.
== END 2024-05-19 20:18 | disposition left against medical advice (07) ==
PROVIDERS: Emergency Provider Emergency Medicine
DX: N89.8 Other specified noninflammatory disorders of vagina (principal)
CPT/HCPCS: 99281

== ENCOUNTER 2024-05-20 14:34 | Emergency (ER) | payer MEDICAID, SELFPAY ==
[2024-05-20 14:52] VITALS: BP 136/87; PULSE 108; RESP 16; TEMP 36.4; O2SAT 100; BMI 18.6
--- NOTE | 2024-05-20 14:55 | ED_ITS ---
HPI - General Adult General Chief complaint: Urogenital-Female Stated complaint: vaginal infection ? Time Seen by Provider: 05/20/24 15:32 Source: patient Mode of arrival: ambulatory Limitations: no limitations History of Present Illness HPI narrative: Patient is a 24-year-old female who presents emergency department expressing concern for abnormal vaginal discharge reporting that it is white and creamy in color which is atypical for her but is without itching or burning. Reports a history of chlamydial infection as well as bacterial vaginosis. She does state that she recently has had sexual intercourse with a prior partner and is concerned that she may have contracted an infection from this person as she feels similar to when she has had chlamydia in the past. Denies fevers, chills, nausea, vomiting or abdominal pain. Denies back pain. Denies pelvic pain. Denies abnormal vaginal bleeding. Denies pain with intercourse. Denies possibility for ; LMP 2 weeks ago. Denies dysuria, urinary frequency/urgency/hesitancy. Related Data Previous Rx's ?Medication ?Instructions ?Recorded doxylamine succinate 25 mg tablet 25 mg PO BEDTIME PRN sleep #30 tabs 05/07/22 (Unisom (doxylamine)) vitamin with calcium 1 tab PO DAILY #90 tabs 05/07/22 no.72-iron 27 mg-folic acid 1 mg tablet ( Vitamins Plus Low Iron) pyridoxine (vitamin B6) 25 mg 25 mg PO TID #90 tabs 05/07/22 tablet doxycycline hyclate 100 mg tablet 100 mg PO BID 7 days #14 tabs 04/05/23 metronidazole 500 mg tablet 500 mg PO BID 7 days #14 tabs 04/05/23 doxycycline hyclate 100 mg capsule 100 mg PO BID #13 caps 05/20/24 Allergies Allergy/AdvReac Type Severity Reaction Status Date / Time No Known Allergies Allergy Verified 05/20/24 14:54 [No Known Allergies*] Review of Systems Review of Systems: Yes all other systems are reviewed and are negative PMFSH Past Medical History Attestation statement: The following information was validated with the patient. Source: old records reviewed Social History Social History (Updated 05/07/22 @ 13:51 by TRACY Gregory) Substance Use Type: Marijuana Advance Directives: No Advance Directives Information Provided: No Physical Exam ED Vital Signs: Vital Signs - 24 hr 05/20/24 14:52 Temperature 97.5 F Pulse Rate 108 H Respiratory Rate 16 Blood Pressure 136/87 Pulse Oximetry 100 Oxygen Delivery Method Room Air BMI result Body Mass Index 18.6 Appearance: Alert.?Oriented to person, place and time. No acute distress.?Normal affect. CVS: Heart sounds normal. Normal heart rate and rhythm.? Pulses normal.?? Respiratory: No respiratory distress.? Lung sounds clear to auscultation bilaterally?? Abdomen: Soft and non-tender. Normoactive bowel sounds. No pulsatile mass.??No CVAT. Genitourinary:? Declines examination. Denies any lesions or sores. Reports no active copious discharge. Skin: Skin warm and dry.? Normal skin color.? Extremities: No lower extremity edema.? Neuro: Moves all extremities spontaneously. Sensation intact bilaterally. Ambulates with normal steady gait. Course Course Course Narrative: This is an RME: Additional HPI, ROS, PE not included below will be deferred to primary provider. RME assessment and note performed by: Karie Mccord PA-C This is a 24-year-old female who presents emergency department with complaints of changes in vaginal discharge, no itching burning. concern for STDs. Plan: UA, CTNG, upreg Medical Decision Making Medical Decision Making [facility] Narrative: Patient is a 24-year-old female presenting to emergency department for evaluation of abnormal vaginal discharge as per HPI. She has personal concern for sexually transmitted infection given a recent new sexual partner and is requesting prophylactic treatment. Poor this patient will receive ceftriaxone IM as well as a prescription for doxycycline to be sent to her pharmacy. Testing for chlamydia and gonorrhea are pending, sent bacterial vaginosis panel and is pending. Urinalysis is not consistent with urinary tract infection, no microscopic hematuria. No CVAT to suggest renal colic secondary to calculi or pyelonephritis. HCG is negative, not consistent with ectopic . No unilateral abdominal pain or tenderness on examination, denies concern for sexually transmitted infection, denies history of ovarian cysts lower suspicion for tubo-ovarian abscess/ PID, ovarian torsion, ruptured ovarian cyst. Differential Diagnosis Differential Diagnoses: The differential diagnosis associated with the presentation includes (See narrative above) Lab Data [facility] Lab Attestation statement: I reviewed the patient's lab results. (See narrative above) Labs: Lab Results 05/20/24 Range/Units 15:00 Urine Color Yellow Urine Appearance Clear Urine pH 7.5 (5.0-9.0) Ur Specific [place] 1.020 (1.005-1.025) Urine Protein Negative (Neg-Trace) mg/dL Urine Glucose (UA) Negative (Negative) mg/dL Urine Ketones Negative (Negative) mg/dL Urine Blood Negative (Negative) Urine Nitrite Negative (Negative) Ur Leukocyte Esterase Negative (Negative) Urine Test NEGATIVE (NEGATIVE) Tests considered The following testing was considered but not selected: See narrative above Prescription Management I considered prescription management with: Antibiotic Discharge Plan Discharge Clinical Impression: Vaginitis Patient Disposition: Home, Self-Care Instructions: Safe Sex Practices (ED), Vaginal Discharge (ED) Additional Instructions: Refrain from sexual intercourse for the next 2 weeks (the 1 week while you are taking antibiotics including 1 week following) should any testing result as positive you will receive a phone call from the emergency department. On doxycycline, do not take pills immediately before going to bed and swallow pills with plenty of water. Avoid direct sunlight, iron, antacids, and Pepto Bismol. Call your provider if you develop new ringing in your ears, new problems hearing, dizziness, difficulty swallowing, rash, abdominal discomfort, nausea, or diarrhea.? Prescriptions: New doxycycline hyclate 100 mg capsule 100 mg PO BID Qty: 13 0RF No Action doxycycline hyclate 100 mg tablet 100 mg PO BID 7 Days Qty: 14 0RF metronidazole 500 mg tablet 500 mg PO BID 7 Days Qty: 14 0RF Vitamin Plus Low Iron 27 mg iron- 1 mg tablet 1 tab PO DAILY Qty: 90 4RF Unisom (doxylamine) 25 mg tablet 25 mg PO BEDTIME PRN (Reason: sleep) Qty: 30 0RF pyridoxine (vitamin B6) 25 mg tablet 25 mg PO TID Qty: 90 1RF Referrals: [facility] [Primary Care Provider] - Print Language: French
[2024-05-20 15:12] LABS: Appearance Urine Clear; Color Urine Yellow; Glucose Urine UA Negative (Negative); Leukocyte Esterase Urine Negative (Negative); Nitrite Urine Negative (Negative); PH 7.5 (5.0-9.0); Urine Blood Negative (Negative); Urine Ketones Negative (Negative); Urine Protein Negative (Neg-Trace)
[2024-05-20 15:18] LABS: UPreg QC Valid YES; Urine Pregnancy NEGATIVE (NEGATIVE)
[2024-05-20] MEDS: Doxycycline Monohydrate 100 MG CAPSULE PO (16:33)
[2024-05-20] MEDS: cefTRIAXone sodium 500 MG, Lidocaine HCl 1 % MPF 1 ML IM (16:33)
[2024-05-20 16:37] VITALS: BP 136/87; PULSE 108; RESP 16; TEMP 36.4; O2SAT 100
[2024-05-20 16:56] LABS: CT PCR NOT DETECTED (Not Detect.); NG PCR NOT DETECTED (Not Detect.)
[2024-05-21 15:24] LABS: Bacterial Vaginosis PCR POSITIVE (Negative); Candida Group PCR DETECTED (Not Detect); Candida glab krusei PCR NOT DETECTED (Not Detect); Trichomonas vaginalis PCR NOT DETECTED (Not Detect)
== END 2024-05-20 16:38 | disposition home or self-care (01) ==
PROVIDERS: Nurse Practitioner Family; Physician Assistant Medical; Emergency Provider Emergency Medicine Emergency Medical Services
DX: N76.0 Acute vaginitis (principal); N89.8 Other specified noninflammatory disorders of vagina
CPT/HCPCS: 0352U; 81003; 81025; 87491; 87591; 96372; 99283; 99284; J0696; J2003

== ENCOUNTER 2024-08-13 12:20 | Emergency (ER) | payer MEDICAID, SELFPAY ==
[2024-08-13 12:35] VITALS: BP 131/81; PULSE 100; RESP 16; TEMP 37; O2SAT 100; BMI 16.3
--- NOTE | 2024-08-13 12:36 | ED_ITS ---
HPI - General Adult General Chief complaint: Dental/Oral Stated complaint: Facial swelling Time Seen by Provider: 08/13/24 19:40 Related Data Previous Rx's ?Medication ?Instructions ?Recorded doxylamine succinate 25 mg tablet 25 mg PO BEDTIME PRN sleep #30 tabs 05/07/22 (Unisom (doxylamine)) vitamin with calcium 1 tab PO DAILY #90 tabs 05/07/22 no.72-iron 27 mg-folic acid 1 mg tablet ( Vitamins Plus Low Iron) pyridoxine (vitamin B6) 25 mg 25 mg PO TID #90 tabs 05/07/22 tablet doxycycline hyclate 100 mg tablet 100 mg PO BID 7 days #14 tabs 04/05/23 metronidazole 500 mg tablet 500 mg PO BID 7 days #14 tabs 04/05/23 doxycycline hyclate 100 mg capsule 100 mg PO BID #13 caps 05/20/24 fluconazole 100 mg tablet 100 mg PO ONCE #1 tab 05/23/24 metronidazole 500 mg tablet 500 mg PO BID 7 days #14 tabs 05/23/24 Allergies Allergy/AdvReac Type Severity Reaction Status Date / Time No Known Allergies Allergy Verified 08/13/24 12:36 [No Known Allergies*] [facility] Social History Social History (Updated 05/07/22 @ 13:51 by TRACY Gregory) Substance Use Type: Marijuana Advance Directives: No Advance Directives Information Provided: Yes Do you have a plan to hurt others: No Plan Physical Exam ED Vital Signs: Vital Signs - 24 hr 08/13/24 12:35 Temperature 98.6 F Pulse Rate 100 Respiratory Rate 16 Blood Pressure 131/81 Pulse Oximetry 100 Oxygen Delivery Method Room Air BMI result Body Mass Index 16.3 Course Course Course Narrative: This is a rapid medical exam. Deferred additional HPI, ROS, PE to primary provider. 24 yo female here with complaints of right lower dental pain since yesterday with swelling. At right lower dental gum line there is fluctuance and swelling. May need drainage of abscess vs CT imaging Will obtain labs, ur preg VSS -Sarbjit Bustillo [employer] Medical Decision Making Lab Data 08/13/24 12:57 08/13/24 12:57 Labs: Lab Results 08/13/24 Range/Units 12:57 WBC 9.3 (4.8-10.8) X10*3/uL RBC 4.66 (4.20-5.50) X10*6/uL Hgb 11.5 L (12.0-16.0) g/dl Hct 37.7 (37.0-47.0) % MCV 80.9 (80.0-98.0) fL MCH 24.7 L (27.0-33.0) pg MCHC 30.5 L (31.0-35.0) g/dl RDW 16.4 H (11.0-16.0) % Plt Count 222 (160-400) X10*3/uL MPV 11.5 (9.4-12.3) fL Immature Gran % (Auto) 0.3 (0.0-0.4) % Neut % (Auto) 69.6 (45-73) % Lymph % (Auto) 19.4 L (20-40) % [place] % (Auto) 9.7 (2-11) % Eos % (Auto) 0.8 (0-4) % Baso % (Auto) 0.2 (0-2) % Lymph # (Auto) 1.8 (1.2-4.9) X10*3/uL [place] # (Auto) 0.9 (0.1-1.2) X10*3/uL Eos # (Auto) 0.1 (0.0-0.4) X10*3/uL Baso # (Auto) 0.0 (0.0-0.2) X10*3/uL Abs Immat Gran (auto) 0.03 (0.00-0.03) X10*3/uL Absolute Neuts (auto) 6.5 (2.0-8.3) x10*3/uL Absolute Nucleated RBC 0.000 (0.0-0.012) X10*3/uL Nucleated RBC % (auto) 0.0 (0.0-0.2) /100WBC Sodium 138 (135-145) mmol/L Potassium 3.9 (3.3-5.1) mmol/L Chloride 111 H (96-108) mmol/L Carbon Dioxide 20 L (22-29) mmol/L Anion Gap 11 L (12-20) BUN 11 (9-16) mg/dL Creatinine 0.72 (0.5-1.4) mg/dL Estim Creat Clear Calc 80.0 Estimated GFR > 60 Random Glucose 93 (60-115) mg/dL Calcium 8.9 D (8.4-10.2) mg/dL Urine Color Yellow Urine Appearance Cloudy Urine pH 5.5 (5.0-9.0) Ur Specific [place] 1.020 (1.005-1.025) Urine Protein Negative (Neg-Trace) mg/dL Urine Glucose (UA) Negative (Negative) mg/dL Urine Ketones Negative (Negative) mg/dL Urine Blood Negative (Negative) Urine Nitrite Negative (Negative) Ur Leukocyte Esterase Trace H (Negative) Urine RBC 0-2 (0-2) /HPF Urine WBC 0-5 (0-5) /HPF Ur Squamous Epith Cells 6-10 (0-2) /HPF Urine Bacteria 3+ (None Seen) Hyaline Casts 0-2 (0-2) /LPF Urine Test NEGATIVE (NEGATIVE) Discharge Plan Discharge Clinical Impression: Toothache Patient Disposition: Left W/O Completing Treatment Prescriptions: No Action doxycycline hyclate 100 mg tablet 100 mg PO BID 7 Days Qty: 14 0RF metronidazole 500 mg tablet 500 mg PO BID 7 Days Qty: 14 0RF doxycycline hyclate 100 mg capsule 100 mg PO BID Qty: 13 0RF metronidazole 500 mg tablet 500 mg PO BID 7 Days Qty: 14 0RF fluconazole 100 mg tablet 100 mg PO ONCE Qty: 1 0RF Vitamin Plus Low Iron 27 mg iron- 1 mg tablet 1 tab PO DAILY Qty: 90 4RF Unisom (doxylamine) 25 mg tablet 25 mg PO BEDTIME PRN (Reason: sleep) Qty: 30 0RF pyridoxine (vitamin B6) 25 mg tablet 25 mg PO TID Qty: 90 1RF Discharge Date/Time: 08/13/24 19:43
--- OUTSIDE RECORDS SUMMARY | 2024-08-13 12:58 | XMS_ITS | Continuity of Care Document ---
Author Organization [facility] Address [address] [place] [phone] Care Team Providers [employer] Consultant Name Role Phone Not on Staff, PCP Primary Care Physician Unavail able Encounter [facility] Date(s): 06/20/24 - 07/21/[address] [address]- Attending Physician: Kimber Woods CNM Admitting Physician: Kimber Woods CNM Encounter Type: Pre-OutPatient One Time Allergies, Adverse Reactions, Alerts No Known Allergies Immunizations Given and Recorded Vaccine Date Status Refusal Reason SARS-CoV-2 mRNA ([id number]) vax 1 09/16/20 Recorded SARS-CoV-2 mRNA ([id number]) vax 2 07/19/20 Recorded 1Result Comment: In [place] 2Result Comment: Received vaccines in [place] Medications Apri 0.15 mg-0.03 mg oral tablet 1 tablet, By Mouth, Daily, take same time daily, # 84 tablet, 3 Refills, Maintenance, 09/16/23 1:21:00 PM EST, Tablet, [id number], Partial fill upon patient request if the prescription is for a schedule II opioid drug., 1 tablet By Mouth Daily,Instr:take same time daily, 159, cm, 12/18/22 9:16:00 EDT, Height, 54.8, kg, 12/16/22 8:55:00 EDT, Dry Weight Start Date: 09/16/23 Status: Ordered Quantity: 84.0 Unit: tablet Repeat number: 4 Indication: Encounter for other general counseling and advice on contraception ferrous sulfate 325 mg oral tablet See Instructions, 1 tablet By Mouth every other day, # 90 tablet, 1 Refills, Maintenance, 09/01/22 2:02:00 PM EST, Tablet, [id number], Partial fill upon patient request if the prescription is for a schedule II opioid drug., 159, cm, 07/29/22 11:24:00 EST, Height Start Date: 09/01/22 Status: Ordered Quantity: 90.0 Unit: tablet Repeat number: 2 Indication: Anemia complicating , unspecified trimester Plan B One-Step 1.5 mg oral tablet 1.5 mg, 1, tablet, By Mouth, Once, # 1 tablet, Refills 0, Tot. Refills 0, Soft Stop, 06/22/23 11:16:00 AM EST, Route to Pharmacy Electronically, [facility] #[id number], Partial fill upon patient request if the prescription is for a schedule II opioid drug., 159, cm, 12/18/22 9:16:00 EDT, Height, 54.8, kg, 12/16/22 8:55:00 EDT, Dry Weight Start Date: 06/22/23 Status: Ordered Quantity: 1.0 Unit: tablet Repeat number: 1 PNV By Mouth, Daily, 0 Refills, Maintenance, 07/29/22 11:30:00 AM EST, Partial fill upon patient requestif the prescription is for a schedule II opioid drug. Start Date: 07/29/22 Status: Ordered Repeat number: 1 Multivitamins with Folic Acid 1 mg oral tablet 1 tablet, By Mouth, Daily, # 90 tablet, 2 Refills, Maintenance, 07/29/22 11:48:00 AM EST, [id number], Partial fill upon patient request if the prescription is for a schedule II opioid drug., 1tablet By Mouth Daily, 159, cm, 07/29/22 11:24:00 EST, Height Start Date: 07/29/22 Status: Ordered Quantity: 90.0 Unit: tablet Repeat number: 3 Social History Social History Type Response Smoking Status Never (less than 100 in lifetime) entered on: 07/29/22 Sex Sex Representation Female (finding) Patient Care team information Care Team Personnel Name: Not on Staff, PCP Position: [facility] Physician (General Medicine) Member Role: PCP Care Team Related Persons Name: PT STATES, ONE Name: FERNANDA FRITZ Insurance Providers Guarantor name: [employer] Plan Information #: 1 Payer: [employer] Member Number: [id number] Policy Number: NA Group Number: [employer] Plan Information #: 2 Payer: [employer] Member Number: [id number] Policy Number: NA Group Number: [id number]
--- OUTSIDE RECORDS SUMMARY | 2024-08-13 12:58 | XMS_ITS | Clinical Summary ---
Author Organization [facility] Address [address] [place] [address] Care Team Providers Care Shuttle Bus Driver Name Role Phone Unavailable Primary Care Provider Unavailabl e Active Problems Patient Care Coordination No te Formatting of this note migh t be different from the original. C3/CM Shana Nunn RN No additional problems on file Encounters Date Type Department Care Team Description 05/20/2024 Orders Only GENERIC EXTERNAL DATA DEPARTMENT Provider, Generic External Data from Last 3 Months Social History Tobacco Use Types Packs/Day Years Used Date Smoking Tobacco: Never Assessed Comments Unknown Sex and Gender Information Value Date Recorded Sex Assigned at Female 05/18/2022 10:22 AM EDT Legal Sex Female 10:22 AM EDT Gender Identity Not on file Sexual Orientation Not on file Plan of Treatment Health Maintenance Due Date Last Done Comments Depression Screening 2001 Alcohol/Substance Use Screening 2013 Tobacco Screening 2013 Family Planning (PISQ) 02/09/2016 HPV Vaccines (1 - 3-dose series) 02/09/2016 DTaP/Tdap/Td Vaccines (1 - Tdap) 02/09/2020 Hepatitis B Vaccines (1 of 3 - 19+ 3-dose series) 02/09/2020 Pap Smear 2022 COVID-19 Vaccine (1 - 2023-2 5 season) 2024 Influenza Vaccine (#1) 2024 Chlamydia and Gonorrhea Screening 05/20/2025 05/20/2024, 03/06/2023 Zoster Vaccines (1 of 2) 2051 RSV Patients and Patients Aged 60 years or older (1 - 1-dose 75+ series) 02/09/2076 HIB Vaccines Aged Out No longer eligi ble based on patient's age to complete this topic Hepatitis A Vaccines Aged Out No long er eligible based on patient's age to complete this topic IPV Vaccines Aged Out No longer eligi ble based on patient's age to complete this topic Meningococcal Vaccine Aged Out No dominik ervin eligible based on patient's age to complete this topic Pneumococcal Vaccine: Pediatrics (0 to 5 Years) and At-Risk Patients (6 to 64 Years) Aged Out No longer eligible b ased on patient's age to complete this topic RSV under 20 months Aged Out No longe r eligible based on patient's age to complete this topic Rotavirus Vaccines Aged Out No longer eligible based on patient's age to complete this topic Procedures Procedure Name Priority Date/Time Associated Diagnosis Comments BACTERIAL VAGINOSIS PANEL Routine 05/20/2024 4:15 PM EDT URINALYSIS WITH REFLEX MICROSCOPIC Routine 05/20/2024 3:00 PM EDT HCG, QL, URINE Routine 05/20/2024 3:00 PM EDT CHLAMYDIA/N. GONORRHOEAE RNA, TMA, UROGENITAL Routine 05/20/2024 3:00 PM EDT from Last 3 Months Results * (ABNORMAL) Bacterial Vaginosis (05/20/2024 4:15 PM EDT) TRICHOMONAS VAGINALIS DETECTION BY PCR NOT DETECTED Not Detect [facility] BACTERIAL VAGINOSIS DETECTION BY PCR POSITIVE(A) Negative [facility] Comment:The BV organism targ ets of the Xpert Xpress MVP test can becommensal in women; Xpert Xpress MVP positive results forbacterial vaginosis should be considered in conjunction withother clinical and patient information to determine thedisease status. Organisms that are not detected by the XpertXpress MVP test have also been reported to be associatedwith BV and aerobic vaginitis.The Xpert Xpress MVP test performance has not been evaluatedin patients under the age of 14. [place] GROUP DETECTION BY PCR DETECTED(A) Not Detect [facility] [place] glab krusei PCR NOT DETECTED Not Detect [facility] 05/20/2024 4:15 PM EDT 05/20/2024 4:17 PM EDT us Generic External Data Provider LAB MICROBIOLOGY - GENERAL ORDERABLES Final Result [facility] [address] [place] [phone] * Chlamydia/N. Gonorrhoeae RNA, TMA, Urogenitial (05/20/2024 3:00 PM EDT) CT PCR NOT DETECTED Not Detect. [facility] Comment:A not detected test result does not exclude the possibilityof infection because test results can be affected byimproper specimen collection, concurrent antibiotic therapy,or the number of organisms in the specimen which may bebelow the sensitivity of the test. As with many diagnostictests, results from the Xpert CT/NG assay should beinterpreted in conjunction with other laboratory andclinical data available to the clinician.Xpert CT/NG performance has not been evaluated in patientsless than 14 years of age. The assay should not be used forthe evaluationof suspected sexual abuse or for other medico-legalindications. Additional testing is recommended in anycircumstance when false positive or false negative resultscould lead to adverse medical, social or psychologicalconsequences. NG PCR NOT DETECTED Not Detect. [facility] Comment:A not detected test result does not exclude the possibilityof infection because test results can be affected byimproper specimen collection, concurrent antibiotic therapy,or the number of organisms in the specimen which may bebelow the sensitivity of the test. As with many diagnostictests, results from the Xpert CT/NG assay should beinterpreted in conjunction with other laboratory andclinical data available to the clinician.Xpert CT/NG performance has not been evaluated in patientsless than 14 years of age. The assay should not be used forthe evaluationof suspected sexual abuse or for other medico-legalindications. Additional testing is recommended in anycircumstance when false positive or false negative resultscould lead to adverse medical, social or psychologicalconsequences. 05/20/2024 3:00 PM EDT 05/20/2024 3:05 PM EDT Narrative [facility] - 05/20/2024 4:57 PM EDT Urine us Generic External Data Provider LAB MICROBIOLOGY - GENERAL ORDERABLES Final Result Performing Organization Address [facility] Co de Phone Number [facility] [address] [place] [phone] * HCG, Qualitative, Urine (05/20/2024 3:00 PM EDT) Urine NEGATIVE NEGATIVE [facility] Comment:This test was develo ped to detect early . Falsenegative results may occur after the 5th - 7th week ofpregnancy when using this test method. If clinicallyindicated, consider a serum hCG. 05/20/2024 3:00 PM EDT 05/20/2024 3:05 PM EDT Generic External Data Provider LAB URINE ORDERAB LES Final Result Performing Organization Address [facility] Co de Phone Number [facility] [address] [place] [phone] Urinalysis w/reflex microscopic (05/20/2024 3:00 PM EDT) Color Urine Yellow [facility] Appearance Urine Clear [facility] PH 7.5 5.0 - 9.0 [facility] Glucose Urine UA Negative Negative mg/dL [facility] Urine Blood Negative Negative [facility] Specific [place] - Urine 1.020 1.005 - 1.025 [facility] Urine Protein Negative Neg-Trace mg/dL [facility] Urine Ketones Negative Negative mg/dL [facility] Nitrite Urine Negative Negative [facility] Leukocyte Esterase Urine Negative Negative [facility] 05/20/2024 3:00 PM EDT 05/20/2024 3:05 PM EDT Narrative [facility] - 05/20/2024 3:21 PM EDT [id number], Clean Catch us Generic External Data Provider LAB URINE ORDERAB LES Final Result [facility] [address] [place] [address] [phone] from Last 3 Months
[2024-08-13 13:06] LABS: MANUAL DIFF FLAG NO
[2024-08-13 13:10] LABS: Basophils Percent Auto 0.2 % (0-2); Eosinophils Absolute Auto 0.1 X10*3/uL (0.0-0.4); Eosinophils Percent Auto 0.8 % (0-4); Hematocrit 37.7 % (37.0-47.0); Hemoglobin 11.5 g/dl (12.0-16.0); Imm Gran Abs Auto 0.03 X10*3/uL (0.00-0.03); Imm Gran Pct Auto 0.3 % (0.0-0.4); Lymphocytes Absolute Auto 1.8 X10*3/uL (1.2-4.9); Lymphocytes Percent Auto 19.4 % (20-40); Mean Corpuscular HGB Conc 30.5 g/dl (31.0-35.0); Mean Corpuscular Hemoglobin 24.7 pg (27.0-33.0); Mean Corpuscular Volume 80.9 fL (80.0-98.0); Mean Platelet Volume 11.5 fL (9.4-12.3); Monocytes Absolute Auto 0.9 X10*3/uL (0.1-1.2); Monocytes Percent Auto 9.7 % (2-11); Neutrophils Absolute Auto 6.5 x10*3/uL (2.0-8.3); Neutrophils Percent Auto 69.6 % (45-73); Platelet Count 222 X10*3/uL (160-400); Red Blood Count 4.66 X10*6/uL (4.20-5.50); Red Cell Distribution Width 16.4 % (11.0-16.0); White Blood Count 9.3 X10*3/uL (4.8-10.8)
[2024-08-13 13:17] LABS: Appearance Urine Cloudy; Color Urine Yellow; Glucose Urine UA Negative (Negative); Leukocyte Esterase Urine Trace (Negative); Nitrite Urine Negative (Negative); PH 5.5 (5.0-9.0); UMIC TRIGGER UACC YES; Urine Blood Negative (Negative); Urine Ketones Negative (Negative); Urine Protein Negative (Neg-Trace)
[2024-08-13 13:19] LABS: UPreg QC Valid YES; Urine Pregnancy NEGATIVE (NEGATIVE)
[2024-08-13 13:23] LABS: Bacteria Urine 3+ (None Seen); Hyaline Casts Urine 0-2 /LPF (0-2); RBC Urine 0-2 /HPF (0-2); WBC Urine 0-5 /HPF (0-5)
[2024-08-13 13:25] LABS: Anion Gap 11 (12-20); Blood Urea Nitrogen 11 mg/dL (9-16); Calcium 8.9 mg/dL (8.4-10.2); Carbon Dioxide 20 mmol/L (22-29); Chloride 111 mmol/L (96-108); Estimated Glomerular Filt Rate > 60; Glucose Random 93 mg/dL (60-115); Potassium 3.9 mmol/L (3.3-5.1); Sodium 138 mmol/L (135-145)
== END 2024-08-13 19:43 | disposition left against medical advice (07) ==
PROVIDERS: Nurse Practitioner Family; Emergency Provider Emergency Medicine
DX: K08.89 Other specified disorders of teeth and supporting structures (principal); Z79.899 Other long term (current) drug therapy
CPT/HCPCS: 36415; 80048; 81001; 81025; 85025; 99282